=== PATIENT | male | born 1950 | race Caucasian/White ===

== ENCOUNTER → 2018-09-07 | Outpatient (CLI) | payer MEDICARE | END | disposition home or self-care (01) | LOC: RAH 13:39 | PROVIDERS: ATTEND Family Medicine | DX: M79.605 Pain in left leg (principal) | CPT/HCPCS: 93971 ==

== ENCOUNTER → 2019-08-19 | Outpatient (CLI) | payer MEDICARE | END | disposition home or self-care (01) | LOC: SHCH 14:30 | PROVIDERS: ATTEND Internal Medicine Cardiovascular Disease | DX: I87.2 Venous insufficiency (chronic) (peripheral) (principal) | CPT/HCPCS: 93970 ==

== ENCOUNTER → 2019-10-19 | Outpatient (CLI) | payer MEDICARE ==
[~2019-10-19] MED LIST: HYDROGEL DRESSING 30 GM TUBE TP ONE; SILVER NITRATE APPLICATOR 1 SWAB TP ONE
== END | disposition home or self-care (01) ==
LOC: WHH 08:50
PROVIDERS: ATTEND Surgery
DX: E11.622 Type 2 diabetes mellitus with other skin ulcer (principal); I83.028 Varicose veins of left lower extremity with ulcer other part of lower leg; L97.821 Non-pressure chronic ulcer of other part of left lower leg limited to breakdown of skin; L02.416 Cutaneous abscess of left lower limb; E11.42 Type 2 diabetes mellitus with diabetic polyneuropathy; I87.2 Venous insufficiency (chronic) (peripheral); I89.0 Lymphedema, not elsewhere classified; I11.9 Hypertensive heart disease without heart failure; E03.9 Hypothyroidism, unspecified; G47.33 Obstructive sleep apnea (adult) (pediatric); E66.9 Obesity, unspecified; J44.9 Chronic obstructive pulmonary disease, unspecified; E78.5 Hyperlipidemia, unspecified; M19.90 Unspecified osteoarthritis, unspecified site; G47.30 Sleep apnea, unspecified; Z96.653 Presence of artificial knee joint, bilateral; Z68.38 Body mass index [BMI] 38.0-38.9, adult; Z90.49 Acquired absence of other specified parts of digestive tract; Z98.49 Cataract extraction status, unspecified eye
CPT/HCPCS: 17250; A6197

== ENCOUNTER → 2019-10-26 | Outpatient (CLI) | payer MEDICARE ==
[~2019-10-26] MED LIST changes: -HYDROGEL DRESSING 30 GM TUBE TP ONE; +LIDOCAINE HCL 4% LTA SOL 4 ML VIAL ONE
== END | disposition home or self-care (01) ==
LOC: WHH 08:45
PROVIDERS: ATTEND Surgery
DX: E11.622 Type 2 diabetes mellitus with other skin ulcer (principal); I83.028 Varicose veins of left lower extremity with ulcer other part of lower leg; L97.822 Non-pressure chronic ulcer of other part of left lower leg with fat layer exposed; L02.416 Cutaneous abscess of left lower limb; E11.42 Type 2 diabetes mellitus with diabetic polyneuropathy; I87.2 Venous insufficiency (chronic) (peripheral); I89.0 Lymphedema, not elsewhere classified; I11.9 Hypertensive heart disease without heart failure; E03.9 Hypothyroidism, unspecified; G47.33 Obstructive sleep apnea (adult) (pediatric); E66.9 Obesity, unspecified; J44.9 Chronic obstructive pulmonary disease, unspecified; E78.5 Hyperlipidemia, unspecified; M19.90 Unspecified osteoarthritis, unspecified site; G47.30 Sleep apnea, unspecified; Z96.653 Presence of artificial knee joint, bilateral; Z68.38 Body mass index [BMI] 38.0-38.9, adult; Z90.49 Acquired absence of other specified parts of digestive tract; Z98.49 Cataract extraction status, unspecified eye
CPT/HCPCS: 11042; 93971; A6197; A6212

== ENCOUNTER → 2019-10-26 | Outpatient (CLI) | payer MEDICARE | END | disposition home or self-care (01) | LOC: SHCH 14:38 | PROVIDERS: ATTEND Internal Medicine Cardiovascular Disease | DX: I87.2 Venous insufficiency (chronic) (peripheral) (principal); Z09 Encounter for follow-up examination after completed treatment for conditions other than malignant neoplasm | CPT/HCPCS: 93971 ==

== ENCOUNTER → 2019-11-02 | Outpatient (CLI) | payer MEDICARE | END | disposition home or self-care (01) | LOC: SHCH 10:37 | PROVIDERS: ATTEND Internal Medicine Cardiovascular Disease | DX: Z09 Encounter for follow-up examination after completed treatment for conditions other than malignant neoplasm (principal) | CPT/HCPCS: 93971 ==

== ENCOUNTER → 2019-11-02 | Outpatient (CLI) | payer MEDICARE ==
[~2019-11-02] MED LIST changes: -SILVER NITRATE APPLICATOR 1 SWAB TP ONE
== END | disposition home or self-care (01) ==
LOC: WHH 08:40
PROVIDERS: ATTEND Family Medicine
DX: E11.622 Type 2 diabetes mellitus with other skin ulcer (principal); I83.028 Varicose veins of left lower extremity with ulcer other part of lower leg; L97.822 Non-pressure chronic ulcer of other part of left lower leg with fat layer exposed; L02.416 Cutaneous abscess of left lower limb; E11.42 Type 2 diabetes mellitus with diabetic polyneuropathy; I87.2 Venous insufficiency (chronic) (peripheral); I89.0 Lymphedema, not elsewhere classified; I11.9 Hypertensive heart disease without heart failure; E03.9 Hypothyroidism, unspecified; G47.33 Obstructive sleep apnea (adult) (pediatric); E66.9 Obesity, unspecified; J44.9 Chronic obstructive pulmonary disease, unspecified; E78.5 Hyperlipidemia, unspecified; M19.90 Unspecified osteoarthritis, unspecified site; G47.30 Sleep apnea, unspecified; Z96.653 Presence of artificial knee joint, bilateral; Z68.38 Body mass index [BMI] 38.0-38.9, adult; Z90.49 Acquired absence of other specified parts of digestive tract; Z98.49 Cataract extraction status, unspecified eye
CPT/HCPCS: 11042; 73562; 87070; 87077; 87186; 93971; A6197; A6212

== ENCOUNTER → 2019-11-09 | Outpatient (CLI) | payer MEDICARE ==
[~2019-11-09] MED LIST changes: +GENTAMICIN SULFATE 15 GM CREAM.GM. TP ONE; -LIDOCAINE HCL 4% LTA SOL 4 ML VIAL ONE
== END | disposition home or self-care (01) ==
LOC: WHH 09:45
PROVIDERS: ATTEND Family Medicine
DX: E11.622 Type 2 diabetes mellitus with other skin ulcer (principal); I83.028 Varicose veins of left lower extremity with ulcer other part of lower leg; L97.822 Non-pressure chronic ulcer of other part of left lower leg with fat layer exposed; L02.416 Cutaneous abscess of left lower limb; E11.42 Type 2 diabetes mellitus with diabetic polyneuropathy; I87.2 Venous insufficiency (chronic) (peripheral); I89.0 Lymphedema, not elsewhere classified; I11.9 Hypertensive heart disease without heart failure; E03.9 Hypothyroidism, unspecified; G47.33 Obstructive sleep apnea (adult) (pediatric); E66.9 Obesity, unspecified; J44.9 Chronic obstructive pulmonary disease, unspecified; E78.5 Hyperlipidemia, unspecified; M19.90 Unspecified osteoarthritis, unspecified site; G47.30 Sleep apnea, unspecified; Z96.653 Presence of artificial knee joint, bilateral; Z68.38 Body mass index [BMI] 38.0-38.9, adult; Z90.49 Acquired absence of other specified parts of digestive tract; Z98.49 Cataract extraction status, unspecified eye
CPT/HCPCS: 10060; A6197

== ENCOUNTER → 2019-11-10 | Outpatient (CLI) | payer MEDICARE | END | disposition home or self-care (01) | LOC: WHH 10:30 | PROVIDERS: ATTEND Family Medicine | DX: L02.416 Cutaneous abscess of left lower limb (principal); E11.42 Type 2 diabetes mellitus with diabetic polyneuropathy; I83.813 Varicose veins of bilateral lower extremities with pain; I87.2 Venous insufficiency (chronic) (peripheral); I89.0 Lymphedema, not elsewhere classified; I11.9 Hypertensive heart disease without heart failure; E03.9 Hypothyroidism, unspecified; G47.33 Obstructive sleep apnea (adult) (pediatric); E66.9 Obesity, unspecified; J44.9 Chronic obstructive pulmonary disease, unspecified; E78.5 Hyperlipidemia, unspecified; M19.90 Unspecified osteoarthritis, unspecified site; G47.30 Sleep apnea, unspecified; Z96.653 Presence of artificial knee joint, bilateral; Z68.38 Body mass index [BMI] 38.0-38.9, adult; Z90.49 Acquired absence of other specified parts of digestive tract; Z98.49 Cataract extraction status, unspecified eye | CPT/HCPCS: A6197; G0463 ==

== ENCOUNTER → 2019-11-11 | Outpatient (CLI) | payer MEDICARE | END | disposition home or self-care (01) | LOC: WHH 14:15 | PROVIDERS: ATTEND Family Medicine | DX: L02.416 Cutaneous abscess of left lower limb (principal); E11.42 Type 2 diabetes mellitus with diabetic polyneuropathy; I83.813 Varicose veins of bilateral lower extremities with pain; I87.2 Venous insufficiency (chronic) (peripheral); I89.0 Lymphedema, not elsewhere classified; I11.9 Hypertensive heart disease without heart failure; E03.9 Hypothyroidism, unspecified; G47.33 Obstructive sleep apnea (adult) (pediatric); E66.9 Obesity, unspecified; J44.9 Chronic obstructive pulmonary disease, unspecified; E78.5 Hyperlipidemia, unspecified; M19.90 Unspecified osteoarthritis, unspecified site; G47.30 Sleep apnea, unspecified; Z96.653 Presence of artificial knee joint, bilateral; Z68.38 Body mass index [BMI] 38.0-38.9, adult; Z90.49 Acquired absence of other specified parts of digestive tract; Z98.49 Cataract extraction status, unspecified eye | CPT/HCPCS: A6197; G0463 ==

== ENCOUNTER → 2019-11-12 | Outpatient (CLI) | payer MEDICARE | END | disposition home or self-care (01) | LOC: WHH 10:00 | PROVIDERS: ATTEND Family Medicine | DX: L02.416 Cutaneous abscess of left lower limb (principal); E11.42 Type 2 diabetes mellitus with diabetic polyneuropathy; I83.813 Varicose veins of bilateral lower extremities with pain; I87.2 Venous insufficiency (chronic) (peripheral); I89.0 Lymphedema, not elsewhere classified; I11.9 Hypertensive heart disease without heart failure; E03.9 Hypothyroidism, unspecified; G47.33 Obstructive sleep apnea (adult) (pediatric); E66.9 Obesity, unspecified; J44.9 Chronic obstructive pulmonary disease, unspecified; E78.5 Hyperlipidemia, unspecified; M19.90 Unspecified osteoarthritis, unspecified site; G47.30 Sleep apnea, unspecified; Z96.653 Presence of artificial knee joint, bilateral; Z68.38 Body mass index [BMI] 38.0-38.9, adult; Z90.49 Acquired absence of other specified parts of digestive tract; Z98.49 Cataract extraction status, unspecified eye | CPT/HCPCS: A6197; G0463 ==

== ENCOUNTER → 2019-11-15 | Outpatient (CLI) | payer MEDICARE | END | disposition home or self-care (01) | LOC: SHCH 09:48 | PROVIDERS: ATTEND Internal Medicine Cardiovascular Disease | DX: Z09 Encounter for follow-up examination after completed treatment for conditions other than malignant neoplasm (principal); I87.2 Venous insufficiency (chronic) (peripheral) | CPT/HCPCS: 93971 ==

== ENCOUNTER → 2019-11-15 | Outpatient (CLI) | payer MEDICARE ==
[2019-11-15 12:08] LABS: CREATININE 1.3 mg/dL (0.5-1.5); POTASSIUM 4.1 mmol/L (3.5-5.1)
[2019-11-15 12:13] LABS: ALBUMIN 3.3 g/dL (3.5-5.0); BILIRUBIN,TOTAL 0.3 mg/dL (0.2-1.0); TOTAL PROTEIN, SERUM 7.4 g/dL (6.0-8.3)
== END | disposition home or self-care (01) ==
LOC: WHH 10:45
PROVIDERS: ATTEND Family Medicine
DX: L02.416 Cutaneous abscess of left lower limb (principal); E11.42 Type 2 diabetes mellitus with diabetic polyneuropathy; I83.813 Varicose veins of bilateral lower extremities with pain; I87.2 Venous insufficiency (chronic) (peripheral); I89.0 Lymphedema, not elsewhere classified; I11.9 Hypertensive heart disease without heart failure; E03.9 Hypothyroidism, unspecified; G47.33 Obstructive sleep apnea (adult) (pediatric); E66.9 Obesity, unspecified; J44.9 Chronic obstructive pulmonary disease, unspecified; E78.5 Hyperlipidemia, unspecified; M19.90 Unspecified osteoarthritis, unspecified site; G47.30 Sleep apnea, unspecified; Z96.653 Presence of artificial knee joint, bilateral; Z68.38 Body mass index [BMI] 38.0-38.9, adult; Z90.49 Acquired absence of other specified parts of digestive tract; Z98.49 Cataract extraction status, unspecified eye
CPT/HCPCS: 36415; 80053; 93971; A6197; G0463

== ENCOUNTER → 2019-11-16 | Outpatient (CLI) | payer MEDICARE ==
[~2019-11-16] MED LIST changes: +GADODIAMIDE 10 MMOL/20 ML VIAL IV ONE; -GENTAMICIN SULFATE 15 GM CREAM.GM. TP ONE; +LIDOCAINE HCL 4% LTA SOL 4 ML VIAL ONE
== END | disposition home or self-care (01) ==
LOC: WHH 09:00
PROVIDERS: ATTEND Family Medicine
DX: I83.028 Varicose veins of left lower extremity with ulcer other part of lower leg (principal); L97.822 Non-pressure chronic ulcer of other part of left lower leg with fat layer exposed; L02.416 Cutaneous abscess of left lower limb; E11.42 Type 2 diabetes mellitus with diabetic polyneuropathy; I83.811 Varicose veins of right lower extremity with pain; I87.2 Venous insufficiency (chronic) (peripheral); I89.0 Lymphedema, not elsewhere classified; I11.9 Hypertensive heart disease without heart failure; E03.9 Hypothyroidism, unspecified; G47.33 Obstructive sleep apnea (adult) (pediatric); E66.9 Obesity, unspecified; J44.9 Chronic obstructive pulmonary disease, unspecified; E78.5 Hyperlipidemia, unspecified; M19.90 Unspecified osteoarthritis, unspecified site; G47.30 Sleep apnea, unspecified; Z96.653 Presence of artificial knee joint, bilateral; Z68.38 Body mass index [BMI] 38.0-38.9, adult; Z90.49 Acquired absence of other specified parts of digestive tract; Z98.49 Cataract extraction status, unspecified eye
CPT/HCPCS: 11042; 73723; A6197; A9579 ×2

== ENCOUNTER → 2019-11-16 | Outpatient (CLI) | payer MEDICARE ==
[~2019-11-16] MED LIST changes: -LIDOCAINE HCL 4% LTA SOL 4 ML VIAL ONE
== END | disposition home or self-care (01) ==
LOC: RAH 10:00
PROVIDERS: ATTEND Family Medicine
DX: L02.416 Cutaneous abscess of left lower limb (principal); Z96.652 Presence of left artificial knee joint
CPT/HCPCS: 73723; A9579

== ENCOUNTER → 2019-11-17 | Outpatient (CLI) | payer MEDICARE | END | disposition home or self-care (01) | LOC: WHH 11:00 | PROVIDERS: ATTEND Family Medicine | DX: L02.416 Cutaneous abscess of left lower limb (principal); E11.42 Type 2 diabetes mellitus with diabetic polyneuropathy; I83.811 Varicose veins of right lower extremity with pain; I87.2 Venous insufficiency (chronic) (peripheral); I89.0 Lymphedema, not elsewhere classified; I11.9 Hypertensive heart disease without heart failure; E03.9 Hypothyroidism, unspecified; G47.33 Obstructive sleep apnea (adult) (pediatric); E66.9 Obesity, unspecified; J44.9 Chronic obstructive pulmonary disease, unspecified; E78.5 Hyperlipidemia, unspecified; M19.90 Unspecified osteoarthritis, unspecified site; Z96.653 Presence of artificial knee joint, bilateral; Z68.38 Body mass index [BMI] 38.0-38.9, adult; Z90.49 Acquired absence of other specified parts of digestive tract; Z98.49 Cataract extraction status, unspecified eye | CPT/HCPCS: G0463 ==

== ENCOUNTER → 2019-11-18 | Outpatient (CLI) | payer MEDICARE | END | disposition home or self-care (01) | LOC: WHH 11:00 | PROVIDERS: ATTEND Family Medicine | DX: L02.416 Cutaneous abscess of left lower limb (principal); E11.42 Type 2 diabetes mellitus with diabetic polyneuropathy; I83.811 Varicose veins of right lower extremity with pain; I87.2 Venous insufficiency (chronic) (peripheral); I89.0 Lymphedema, not elsewhere classified; I11.9 Hypertensive heart disease without heart failure; E03.9 Hypothyroidism, unspecified; G47.33 Obstructive sleep apnea (adult) (pediatric); E66.9 Obesity, unspecified; J44.9 Chronic obstructive pulmonary disease, unspecified; E78.5 Hyperlipidemia, unspecified; M19.90 Unspecified osteoarthritis, unspecified site; Z96.653 Presence of artificial knee joint, bilateral; Z68.38 Body mass index [BMI] 38.0-38.9, adult; Z90.49 Acquired absence of other specified parts of digestive tract; Z98.49 Cataract extraction status, unspecified eye | CPT/HCPCS: A6197; G0463 ==

== ENCOUNTER → 2019-11-19 | Outpatient (CLI) | payer MEDICARE | END | disposition home or self-care (01) | LOC: WHH 10:30 | PROVIDERS: ATTEND Family Medicine | DX: L02.416 Cutaneous abscess of left lower limb (principal); E11.42 Type 2 diabetes mellitus with diabetic polyneuropathy; I83.813 Varicose veins of bilateral lower extremities with pain; I87.2 Venous insufficiency (chronic) (peripheral); I89.0 Lymphedema, not elsewhere classified; I11.9 Hypertensive heart disease without heart failure; E03.9 Hypothyroidism, unspecified; G47.33 Obstructive sleep apnea (adult) (pediatric); E66.9 Obesity, unspecified; J44.9 Chronic obstructive pulmonary disease, unspecified; E78.5 Hyperlipidemia, unspecified; M19.90 Unspecified osteoarthritis, unspecified site; Z96.653 Presence of artificial knee joint, bilateral; Z68.38 Body mass index [BMI] 38.0-38.9, adult; Z90.49 Acquired absence of other specified parts of digestive tract; Z98.49 Cataract extraction status, unspecified eye | CPT/HCPCS: 87070; A6197; G0463 ==

== ENCOUNTER → 2019-11-22 | Outpatient (CLI) | payer MEDICARE | END | disposition home or self-care (01) | LOC: WHH 10:40 | PROVIDERS: ATTEND Family Medicine | DX: L02.416 Cutaneous abscess of left lower limb (principal); E11.42 Type 2 diabetes mellitus with diabetic polyneuropathy; I83.813 Varicose veins of bilateral lower extremities with pain; I87.2 Venous insufficiency (chronic) (peripheral); I89.0 Lymphedema, not elsewhere classified; I11.9 Hypertensive heart disease without heart failure; E03.9 Hypothyroidism, unspecified; G47.33 Obstructive sleep apnea (adult) (pediatric); E66.9 Obesity, unspecified; J44.9 Chronic obstructive pulmonary disease, unspecified; E78.5 Hyperlipidemia, unspecified; M19.90 Unspecified osteoarthritis, unspecified site; Z96.653 Presence of artificial knee joint, bilateral; Z68.38 Body mass index [BMI] 38.0-38.9, adult; Z90.49 Acquired absence of other specified parts of digestive tract; Z98.49 Cataract extraction status, unspecified eye | CPT/HCPCS: A6197; G0463 ==

== ENCOUNTER → 2019-11-23 | Outpatient (CLI) | payer MEDICARE | END | disposition home or self-care (01) | LOC: WHH 11:00 | PROVIDERS: ATTEND Family Medicine | DX: E11.622 Type 2 diabetes mellitus with other skin ulcer (principal); I83.028 Varicose veins of left lower extremity with ulcer other part of lower leg; L97.822 Non-pressure chronic ulcer of other part of left lower leg with fat layer exposed; L02.416 Cutaneous abscess of left lower limb; E11.42 Type 2 diabetes mellitus with diabetic polyneuropathy; I87.2 Venous insufficiency (chronic) (peripheral); I89.0 Lymphedema, not elsewhere classified; I11.9 Hypertensive heart disease without heart failure; E03.9 Hypothyroidism, unspecified; G47.33 Obstructive sleep apnea (adult) (pediatric); E66.9 Obesity, unspecified; J44.9 Chronic obstructive pulmonary disease, unspecified; E78.5 Hyperlipidemia, unspecified; M19.90 Unspecified osteoarthritis, unspecified site; Z96.653 Presence of artificial knee joint, bilateral; Z68.38 Body mass index [BMI] 38.0-38.9, adult; Z90.49 Acquired absence of other specified parts of digestive tract; Z98.49 Cataract extraction status, unspecified eye | CPT/HCPCS: 11042 ==

== ENCOUNTER → 2019-11-24 | Outpatient (CLI) | payer MEDICARE | END | disposition home or self-care (01) | LOC: WHH 14:00 | PROVIDERS: ATTEND Family Medicine | DX: L02.416 Cutaneous abscess of left lower limb (principal); E11.42 Type 2 diabetes mellitus with diabetic polyneuropathy; I83.813 Varicose veins of bilateral lower extremities with pain; I87.2 Venous insufficiency (chronic) (peripheral); I89.0 Lymphedema, not elsewhere classified; I11.9 Hypertensive heart disease without heart failure; E03.9 Hypothyroidism, unspecified; G47.33 Obstructive sleep apnea (adult) (pediatric); E66.9 Obesity, unspecified; J44.9 Chronic obstructive pulmonary disease, unspecified; E78.5 Hyperlipidemia, unspecified; M19.90 Unspecified osteoarthritis, unspecified site; Z96.653 Presence of artificial knee joint, bilateral; Z68.38 Body mass index [BMI] 38.0-38.9, adult; Z90.49 Acquired absence of other specified parts of digestive tract; Z98.49 Cataract extraction status, unspecified eye | CPT/HCPCS: A6197; G0463 ==

== ENCOUNTER → 2019-11-25 | Outpatient (CLI) | payer MEDICARE | END | disposition home or self-care (01) | LOC: WHH 11:00 | PROVIDERS: ATTEND Family Medicine | DX: L02.416 Cutaneous abscess of left lower limb (principal); E11.42 Type 2 diabetes mellitus with diabetic polyneuropathy; I83.813 Varicose veins of bilateral lower extremities with pain; I87.2 Venous insufficiency (chronic) (peripheral); I89.0 Lymphedema, not elsewhere classified; I11.9 Hypertensive heart disease without heart failure; E03.9 Hypothyroidism, unspecified; G47.33 Obstructive sleep apnea (adult) (pediatric); E66.9 Obesity, unspecified; J44.9 Chronic obstructive pulmonary disease, unspecified; E78.5 Hyperlipidemia, unspecified; M19.90 Unspecified osteoarthritis, unspecified site; Z96.653 Presence of artificial knee joint, bilateral; Z68.38 Body mass index [BMI] 38.0-38.9, adult; Z90.49 Acquired absence of other specified parts of digestive tract; Z98.49 Cataract extraction status, unspecified eye | CPT/HCPCS: A6196; G0463 ==

== ENCOUNTER → 2019-11-30 | Outpatient (CLI) | payer MEDICARE ==
[~2019-11-30] MED LIST changes: -GADODIAMIDE 10 MMOL/20 ML VIAL IV ONE; +LIDOCAINE HCL 2% JELLY 5 ML ONE
== END | disposition home or self-care (01) ==
LOC: WHH 11:00
PROVIDERS: ATTEND Family Medicine
DX: E11.622 Type 2 diabetes mellitus with other skin ulcer (principal); I83.028 Varicose veins of left lower extremity with ulcer other part of lower leg; L97.822 Non-pressure chronic ulcer of other part of left lower leg with fat layer exposed; L02.416 Cutaneous abscess of left lower limb; E11.42 Type 2 diabetes mellitus with diabetic polyneuropathy; I87.2 Venous insufficiency (chronic) (peripheral); I89.0 Lymphedema, not elsewhere classified; I11.9 Hypertensive heart disease without heart failure; E03.9 Hypothyroidism, unspecified; G47.33 Obstructive sleep apnea (adult) (pediatric); E66.9 Obesity, unspecified; J44.9 Chronic obstructive pulmonary disease, unspecified; E78.5 Hyperlipidemia, unspecified; M19.90 Unspecified osteoarthritis, unspecified site; Z96.653 Presence of artificial knee joint, bilateral; Z68.38 Body mass index [BMI] 38.0-38.9, adult; Z90.49 Acquired absence of other specified parts of digestive tract; Z98.49 Cataract extraction status, unspecified eye
CPT/HCPCS: 11042; A6197

== ENCOUNTER → 2019-12-07 | Outpatient (CLI) | payer MEDICARE ==
[~2019-12-07] MED LIST changes: +GENTAMICIN SULFATE 15 GM CREAM.GM. TP ONE; -LIDOCAINE HCL 2% JELLY 5 ML ONE
== END | disposition home or self-care (01) ==
LOC: WHH 11:20
PROVIDERS: ATTEND Family Medicine
DX: E11.622 Type 2 diabetes mellitus with other skin ulcer (principal); I83.028 Varicose veins of left lower extremity with ulcer other part of lower leg; L97.822 Non-pressure chronic ulcer of other part of left lower leg with fat layer exposed; L02.416 Cutaneous abscess of left lower limb; E11.42 Type 2 diabetes mellitus with diabetic polyneuropathy; I87.2 Venous insufficiency (chronic) (peripheral); I89.0 Lymphedema, not elsewhere classified; I11.9 Hypertensive heart disease without heart failure; E03.9 Hypothyroidism, unspecified; G47.33 Obstructive sleep apnea (adult) (pediatric); E66.9 Obesity, unspecified; J44.9 Chronic obstructive pulmonary disease, unspecified; E78.5 Hyperlipidemia, unspecified; M19.90 Unspecified osteoarthritis, unspecified site; Z96.653 Presence of artificial knee joint, bilateral; Z68.38 Body mass index [BMI] 38.0-38.9, adult; Z90.49 Acquired absence of other specified parts of digestive tract; Z98.49 Cataract extraction status, unspecified eye
CPT/HCPCS: 11042; 87070; A6197

== ENCOUNTER → 2019-12-14 | Outpatient (CLI) | payer MEDICARE ==
[~2019-12-14] MED LIST changes: -GENTAMICIN SULFATE 15 GM CREAM.GM. TP ONE; +LIDOCAINE HCL 2% JELLY 5 ML ONE
== END | disposition home or self-care (01) ==
LOC: WHH 11:00
PROVIDERS: ATTEND Family Medicine
DX: E11.622 Type 2 diabetes mellitus with other skin ulcer (principal); I83.028 Varicose veins of left lower extremity with ulcer other part of lower leg; L97.822 Non-pressure chronic ulcer of other part of left lower leg with fat layer exposed; L02.416 Cutaneous abscess of left lower limb; E11.42 Type 2 diabetes mellitus with diabetic polyneuropathy; I87.2 Venous insufficiency (chronic) (peripheral); I89.0 Lymphedema, not elsewhere classified; I11.9 Hypertensive heart disease without heart failure; E03.9 Hypothyroidism, unspecified; G47.33 Obstructive sleep apnea (adult) (pediatric); E66.9 Obesity, unspecified; J44.9 Chronic obstructive pulmonary disease, unspecified; E78.5 Hyperlipidemia, unspecified; M19.90 Unspecified osteoarthritis, unspecified site; Z96.653 Presence of artificial knee joint, bilateral; Z68.38 Body mass index [BMI] 38.0-38.9, adult; Z90.49 Acquired absence of other specified parts of digestive tract; Z98.49 Cataract extraction status, unspecified eye
CPT/HCPCS: 11042; 87076; 87077; 87186

== ENCOUNTER → 2019-12-15 | Outpatient (CLI) | payer MEDICARE | END | disposition home or self-care (01) | LOC: WHH 11:00 | PROVIDERS: ATTEND Family Medicine | DX: L02.416 Cutaneous abscess of left lower limb (principal); I83.813 Varicose veins of bilateral lower extremities with pain; E11.42 Type 2 diabetes mellitus with diabetic polyneuropathy; I87.2 Venous insufficiency (chronic) (peripheral); I89.0 Lymphedema, not elsewhere classified; I11.9 Hypertensive heart disease without heart failure; E03.9 Hypothyroidism, unspecified; G47.33 Obstructive sleep apnea (adult) (pediatric); E66.9 Obesity, unspecified; J44.9 Chronic obstructive pulmonary disease, unspecified; E78.5 Hyperlipidemia, unspecified; M19.90 Unspecified osteoarthritis, unspecified site; Z96.653 Presence of artificial knee joint, bilateral; Z68.38 Body mass index [BMI] 38.0-38.9, adult; Z90.49 Acquired absence of other specified parts of digestive tract; Z98.49 Cataract extraction status, unspecified eye | CPT/HCPCS: G0463 ==

== ENCOUNTER → 2019-12-16 | Outpatient (CLI) | payer MEDICARE | END | disposition home or self-care (01) | LOC: WHH 11:00 | PROVIDERS: ATTEND Family Medicine | DX: L02.416 Cutaneous abscess of left lower limb (principal); I83.813 Varicose veins of bilateral lower extremities with pain; E11.42 Type 2 diabetes mellitus with diabetic polyneuropathy; I87.2 Venous insufficiency (chronic) (peripheral); I89.0 Lymphedema, not elsewhere classified; I11.9 Hypertensive heart disease without heart failure; E03.9 Hypothyroidism, unspecified; G47.33 Obstructive sleep apnea (adult) (pediatric); E66.9 Obesity, unspecified; J44.9 Chronic obstructive pulmonary disease, unspecified; E78.5 Hyperlipidemia, unspecified; M19.90 Unspecified osteoarthritis, unspecified site; Z96.653 Presence of artificial knee joint, bilateral; Z68.38 Body mass index [BMI] 38.0-38.9, adult; Z90.49 Acquired absence of other specified parts of digestive tract; Z98.49 Cataract extraction status, unspecified eye | CPT/HCPCS: G0463 ==

== ENCOUNTER → 2019-12-17 | Outpatient (CLI) | payer MEDICARE | END | disposition home or self-care (01) | LOC: WHH 08:45 | PROVIDERS: ATTEND Family Medicine | DX: L02.416 Cutaneous abscess of left lower limb (principal); I83.813 Varicose veins of bilateral lower extremities with pain; E11.42 Type 2 diabetes mellitus with diabetic polyneuropathy; I87.2 Venous insufficiency (chronic) (peripheral); I89.0 Lymphedema, not elsewhere classified; I11.9 Hypertensive heart disease without heart failure; E03.9 Hypothyroidism, unspecified; G47.33 Obstructive sleep apnea (adult) (pediatric); E66.9 Obesity, unspecified; J44.9 Chronic obstructive pulmonary disease, unspecified; E78.5 Hyperlipidemia, unspecified; M19.90 Unspecified osteoarthritis, unspecified site; Z96.653 Presence of artificial knee joint, bilateral; Z68.38 Body mass index [BMI] 38.0-38.9, adult; Z90.49 Acquired absence of other specified parts of digestive tract; Z98.49 Cataract extraction status, unspecified eye | CPT/HCPCS: G0463 ==

== ENCOUNTER → 2019-12-20 | Outpatient (CLI) | payer MEDICARE | END | disposition home or self-care (01) | LOC: WHH 11:00 | PROVIDERS: ATTEND Family Medicine | DX: I83.028 Varicose veins of left lower extremity with ulcer other part of lower leg (principal); L97.822 Non-pressure chronic ulcer of other part of left lower leg with fat layer exposed; L02.416 Cutaneous abscess of left lower limb; I83.812 Varicose veins of left lower extremity with pain; E11.42 Type 2 diabetes mellitus with diabetic polyneuropathy; I87.2 Venous insufficiency (chronic) (peripheral); I89.0 Lymphedema, not elsewhere classified; I11.9 Hypertensive heart disease without heart failure; E03.9 Hypothyroidism, unspecified; G47.33 Obstructive sleep apnea (adult) (pediatric); E66.9 Obesity, unspecified; J44.9 Chronic obstructive pulmonary disease, unspecified; E78.5 Hyperlipidemia, unspecified; M19.90 Unspecified osteoarthritis, unspecified site; Z96.653 Presence of artificial knee joint, bilateral; Z68.38 Body mass index [BMI] 38.0-38.9, adult; Z90.49 Acquired absence of other specified parts of digestive tract; Z98.49 Cataract extraction status, unspecified eye | CPT/HCPCS: G0463 ==

== ENCOUNTER → 2019-12-21 | Outpatient (CLI) | payer MEDICARE | END | disposition home or self-care (01) | LOC: WHH 11:00 | PROVIDERS: ATTEND Family Medicine | DX: L02.416 Cutaneous abscess of left lower limb (principal); I83.813 Varicose veins of bilateral lower extremities with pain; E11.42 Type 2 diabetes mellitus with diabetic polyneuropathy; I87.2 Venous insufficiency (chronic) (peripheral); I89.0 Lymphedema, not elsewhere classified; I11.9 Hypertensive heart disease without heart failure; E03.9 Hypothyroidism, unspecified; G47.33 Obstructive sleep apnea (adult) (pediatric); E66.9 Obesity, unspecified; J44.9 Chronic obstructive pulmonary disease, unspecified; E78.5 Hyperlipidemia, unspecified; M19.90 Unspecified osteoarthritis, unspecified site; Z96.653 Presence of artificial knee joint, bilateral; Z68.38 Body mass index [BMI] 38.0-38.9, adult; Z90.49 Acquired absence of other specified parts of digestive tract; Z98.49 Cataract extraction status, unspecified eye | CPT/HCPCS: G0463 ==

== ENCOUNTER → 2019-12-22 | Outpatient (CLI) | payer MEDICARE | END | disposition home or self-care (01) | LOC: WHH 10:50 | PROVIDERS: ATTEND Family Medicine | DX: L02.416 Cutaneous abscess of left lower limb (principal); I83.813 Varicose veins of bilateral lower extremities with pain; E11.42 Type 2 diabetes mellitus with diabetic polyneuropathy; I87.2 Venous insufficiency (chronic) (peripheral); I89.0 Lymphedema, not elsewhere classified; I11.9 Hypertensive heart disease without heart failure; E03.9 Hypothyroidism, unspecified; G47.33 Obstructive sleep apnea (adult) (pediatric); E66.9 Obesity, unspecified; J44.9 Chronic obstructive pulmonary disease, unspecified; E78.5 Hyperlipidemia, unspecified; M19.90 Unspecified osteoarthritis, unspecified site; Z96.653 Presence of artificial knee joint, bilateral; Z68.38 Body mass index [BMI] 38.0-38.9, adult; Z90.49 Acquired absence of other specified parts of digestive tract; Z98.49 Cataract extraction status, unspecified eye | CPT/HCPCS: G0463 ==

== ENCOUNTER → 2019-12-23 | Outpatient (CLI) | payer MEDICARE | END | disposition home or self-care (01) | LOC: WHH 11:00 | PROVIDERS: ATTEND Family Medicine | DX: L02.416 Cutaneous abscess of left lower limb (principal); I83.813 Varicose veins of bilateral lower extremities with pain; E11.42 Type 2 diabetes mellitus with diabetic polyneuropathy; I87.2 Venous insufficiency (chronic) (peripheral); I89.0 Lymphedema, not elsewhere classified; I11.9 Hypertensive heart disease without heart failure; E03.9 Hypothyroidism, unspecified; G47.33 Obstructive sleep apnea (adult) (pediatric); E66.9 Obesity, unspecified; J44.9 Chronic obstructive pulmonary disease, unspecified; E78.5 Hyperlipidemia, unspecified; M19.90 Unspecified osteoarthritis, unspecified site; Z96.653 Presence of artificial knee joint, bilateral; Z68.38 Body mass index [BMI] 38.0-38.9, adult; Z90.49 Acquired absence of other specified parts of digestive tract; Z98.49 Cataract extraction status, unspecified eye | CPT/HCPCS: G0463 ==

== ENCOUNTER → 2019-12-24 | Outpatient (CLI) | payer MEDICARE | END | disposition home or self-care (01) | LOC: WHH 09:00 | PROVIDERS: ATTEND Family Medicine | DX: L02.416 Cutaneous abscess of left lower limb (principal); I83.813 Varicose veins of bilateral lower extremities with pain; E11.42 Type 2 diabetes mellitus with diabetic polyneuropathy; I87.2 Venous insufficiency (chronic) (peripheral); I89.0 Lymphedema, not elsewhere classified; I11.9 Hypertensive heart disease without heart failure; E03.9 Hypothyroidism, unspecified; G47.33 Obstructive sleep apnea (adult) (pediatric); E66.9 Obesity, unspecified; J44.9 Chronic obstructive pulmonary disease, unspecified; E78.5 Hyperlipidemia, unspecified; M19.90 Unspecified osteoarthritis, unspecified site; Z96.653 Presence of artificial knee joint, bilateral; Z68.38 Body mass index [BMI] 38.0-38.9, adult; Z90.49 Acquired absence of other specified parts of digestive tract; Z98.49 Cataract extraction status, unspecified eye | CPT/HCPCS: G0463 ==

== ENCOUNTER → 2019-12-27 | Outpatient (CLI) | payer MEDICARE | END | disposition home or self-care (01) | LOC: WHH 09:00 | PROVIDERS: ATTEND Family Medicine | DX: L02.416 Cutaneous abscess of left lower limb (principal); I83.813 Varicose veins of bilateral lower extremities with pain; E11.42 Type 2 diabetes mellitus with diabetic polyneuropathy; I87.2 Venous insufficiency (chronic) (peripheral); I89.0 Lymphedema, not elsewhere classified; I11.9 Hypertensive heart disease without heart failure; E03.9 Hypothyroidism, unspecified; G47.33 Obstructive sleep apnea (adult) (pediatric); E66.9 Obesity, unspecified; J44.9 Chronic obstructive pulmonary disease, unspecified; E78.5 Hyperlipidemia, unspecified; M19.90 Unspecified osteoarthritis, unspecified site; Z96.653 Presence of artificial knee joint, bilateral; Z68.38 Body mass index [BMI] 38.0-38.9, adult; Z90.49 Acquired absence of other specified parts of digestive tract; Z98.49 Cataract extraction status, unspecified eye | CPT/HCPCS: A4450; G0463 ==

== ENCOUNTER → 2019-12-29 | Outpatient (CLI) | payer MEDICARE | END | disposition home or self-care (01) | LOC: WHH 10:30 | PROVIDERS: ATTEND Family Medicine | DX: L02.416 Cutaneous abscess of left lower limb (principal); I83.813 Varicose veins of bilateral lower extremities with pain; E11.42 Type 2 diabetes mellitus with diabetic polyneuropathy; I87.2 Venous insufficiency (chronic) (peripheral); I89.0 Lymphedema, not elsewhere classified; I11.9 Hypertensive heart disease without heart failure; E03.9 Hypothyroidism, unspecified; G47.33 Obstructive sleep apnea (adult) (pediatric); E66.9 Obesity, unspecified; J44.9 Chronic obstructive pulmonary disease, unspecified; E78.5 Hyperlipidemia, unspecified; M19.90 Unspecified osteoarthritis, unspecified site; Z96.653 Presence of artificial knee joint, bilateral; Z68.38 Body mass index [BMI] 38.0-38.9, adult; Z90.49 Acquired absence of other specified parts of digestive tract; Z98.49 Cataract extraction status, unspecified eye | CPT/HCPCS: G0463 ==

== ENCOUNTER → 2019-12-30 | Outpatient (CLI) | payer MEDICARE | END | disposition home or self-care (01) | LOC: WHH 11:00 | PROVIDERS: ATTEND Family Medicine | DX: I83.028 Varicose veins of left lower extremity with ulcer other part of lower leg (principal); L97.822 Non-pressure chronic ulcer of other part of left lower leg with fat layer exposed; L02.416 Cutaneous abscess of left lower limb; E11.42 Type 2 diabetes mellitus with diabetic polyneuropathy; I87.2 Venous insufficiency (chronic) (peripheral); I89.0 Lymphedema, not elsewhere classified; I11.9 Hypertensive heart disease without heart failure; E03.9 Hypothyroidism, unspecified; G47.33 Obstructive sleep apnea (adult) (pediatric); E66.9 Obesity, unspecified; J44.9 Chronic obstructive pulmonary disease, unspecified; E78.5 Hyperlipidemia, unspecified; M19.90 Unspecified osteoarthritis, unspecified site; Z96.653 Presence of artificial knee joint, bilateral; Z68.38 Body mass index [BMI] 38.0-38.9, adult; Z90.49 Acquired absence of other specified parts of digestive tract; Z98.49 Cataract extraction status, unspecified eye | CPT/HCPCS: G0463 ==

== ENCOUNTER → 2019-12-31 | Outpatient (CLI) | payer MEDICARE | END | disposition home or self-care (01) | LOC: WHH 11:00 | PROVIDERS: ATTEND Family Medicine | DX: L02.416 Cutaneous abscess of left lower limb (principal); I83.813 Varicose veins of bilateral lower extremities with pain; E11.42 Type 2 diabetes mellitus with diabetic polyneuropathy; I87.2 Venous insufficiency (chronic) (peripheral); I89.0 Lymphedema, not elsewhere classified; I11.9 Hypertensive heart disease without heart failure; E03.9 Hypothyroidism, unspecified; G47.33 Obstructive sleep apnea (adult) (pediatric); E66.9 Obesity, unspecified; J44.9 Chronic obstructive pulmonary disease, unspecified; E78.5 Hyperlipidemia, unspecified; M19.90 Unspecified osteoarthritis, unspecified site; Z96.653 Presence of artificial knee joint, bilateral; Z68.38 Body mass index [BMI] 38.0-38.9, adult; Z90.49 Acquired absence of other specified parts of digestive tract; Z98.49 Cataract extraction status, unspecified eye | CPT/HCPCS: G0463 ==

== ENCOUNTER → 2020-01-03 | Outpatient (CLI) | payer MEDICARE | END | disposition home or self-care (01) | LOC: WHH 12:00 | PROVIDERS: ATTEND Family Medicine | DX: L02.416 Cutaneous abscess of left lower limb (principal); I83.813 Varicose veins of bilateral lower extremities with pain; E11.42 Type 2 diabetes mellitus with diabetic polyneuropathy; I87.2 Venous insufficiency (chronic) (peripheral); I89.0 Lymphedema, not elsewhere classified; I11.9 Hypertensive heart disease without heart failure; E03.9 Hypothyroidism, unspecified; G47.33 Obstructive sleep apnea (adult) (pediatric); E66.9 Obesity, unspecified; J44.9 Chronic obstructive pulmonary disease, unspecified; E78.5 Hyperlipidemia, unspecified; M19.90 Unspecified osteoarthritis, unspecified site; Z96.653 Presence of artificial knee joint, bilateral; Z68.38 Body mass index [BMI] 38.0-38.9, adult; Z90.49 Acquired absence of other specified parts of digestive tract; Z98.49 Cataract extraction status, unspecified eye | CPT/HCPCS: G0463 ==

== ENCOUNTER → 2020-01-04 | Outpatient (CLI) | payer MEDICARE | END | disposition home or self-care (01) | LOC: WHH 11:00 | PROVIDERS: ATTEND Family Medicine | DX: L02.416 Cutaneous abscess of left lower limb (principal); I83.813 Varicose veins of bilateral lower extremities with pain; E11.42 Type 2 diabetes mellitus with diabetic polyneuropathy; I87.2 Venous insufficiency (chronic) (peripheral); I89.0 Lymphedema, not elsewhere classified; I11.9 Hypertensive heart disease without heart failure; E03.9 Hypothyroidism, unspecified; G47.33 Obstructive sleep apnea (adult) (pediatric); E66.9 Obesity, unspecified; J44.9 Chronic obstructive pulmonary disease, unspecified; E78.5 Hyperlipidemia, unspecified; M19.90 Unspecified osteoarthritis, unspecified site; Z96.653 Presence of artificial knee joint, bilateral; Z68.38 Body mass index [BMI] 38.0-38.9, adult; Z90.49 Acquired absence of other specified parts of digestive tract; Z98.49 Cataract extraction status, unspecified eye | CPT/HCPCS: G0463 ==

== ENCOUNTER → 2020-01-05 | Outpatient (CLI) | payer MEDICARE | END | disposition home or self-care (01) | LOC: WHH 11:00 | PROVIDERS: ATTEND Family Medicine | DX: L02.416 Cutaneous abscess of left lower limb (principal); I83.813 Varicose veins of bilateral lower extremities with pain; E11.42 Type 2 diabetes mellitus with diabetic polyneuropathy; I87.2 Venous insufficiency (chronic) (peripheral); I89.0 Lymphedema, not elsewhere classified; I11.9 Hypertensive heart disease without heart failure; E03.9 Hypothyroidism, unspecified; G47.33 Obstructive sleep apnea (adult) (pediatric); E66.9 Obesity, unspecified; J44.9 Chronic obstructive pulmonary disease, unspecified; E78.5 Hyperlipidemia, unspecified; M19.90 Unspecified osteoarthritis, unspecified site; Z96.653 Presence of artificial knee joint, bilateral; Z68.38 Body mass index [BMI] 38.0-38.9, adult; Z90.49 Acquired absence of other specified parts of digestive tract; Z98.49 Cataract extraction status, unspecified eye | CPT/HCPCS: 87070; 87077; 87186; G0463 ==

== ENCOUNTER → 2020-01-06 | Outpatient (CLI) | payer MEDICARE | END | disposition home or self-care (01) | LOC: WHH 10:45 | PROVIDERS: ATTEND Family Medicine | DX: I83.028 Varicose veins of left lower extremity with ulcer other part of lower leg (principal); L97.822 Non-pressure chronic ulcer of other part of left lower leg with fat layer exposed; L02.416 Cutaneous abscess of left lower limb; E11.42 Type 2 diabetes mellitus with diabetic polyneuropathy; I87.2 Venous insufficiency (chronic) (peripheral); I89.0 Lymphedema, not elsewhere classified; I11.9 Hypertensive heart disease without heart failure; E03.9 Hypothyroidism, unspecified; G47.33 Obstructive sleep apnea (adult) (pediatric); E66.9 Obesity, unspecified; J44.9 Chronic obstructive pulmonary disease, unspecified; E78.5 Hyperlipidemia, unspecified; M19.90 Unspecified osteoarthritis, unspecified site; Z96.653 Presence of artificial knee joint, bilateral; Z68.38 Body mass index [BMI] 38.0-38.9, adult; Z90.49 Acquired absence of other specified parts of digestive tract; Z98.49 Cataract extraction status, unspecified eye | CPT/HCPCS: 11042 ==

== ENCOUNTER → 2020-01-07 | Outpatient (CLI) | payer MEDICARE ==
[~2020-01-07] MED LIST changes: +ALFU10TA9 PO; +ASPI-888 PO; +CELE-84 PO; +ENABLEX PO; +LEVO200 PO; -LIDOCAINE HCL 2% JELLY 5 ML ONE; +LIOT5TAB11 PO; +LOVA20TA3 PO; +MELA5TAB14 PO; +METF-910 PO; +MIRA50TA PO; +MULT-1258 PO; +NIFE90TA45 PO; +OLME40TA18 PO; +SYMB8060 IH; +[UNRECOGNIZED DRUG - CODE] PO
== END | disposition home or self-care (01) ==
LOC: WHH 08:00
PROVIDERS: ATTEND Family Medicine
DX: L02.416 Cutaneous abscess of left lower limb (principal); I83.813 Varicose veins of bilateral lower extremities with pain; E11.42 Type 2 diabetes mellitus with diabetic polyneuropathy; I87.2 Venous insufficiency (chronic) (peripheral); I89.0 Lymphedema, not elsewhere classified; I11.9 Hypertensive heart disease without heart failure; E03.9 Hypothyroidism, unspecified; G47.33 Obstructive sleep apnea (adult) (pediatric); E66.9 Obesity, unspecified; J44.9 Chronic obstructive pulmonary disease, unspecified; E78.5 Hyperlipidemia, unspecified; M19.90 Unspecified osteoarthritis, unspecified site; Z96.653 Presence of artificial knee joint, bilateral; Z68.38 Body mass index [BMI] 38.0-38.9, adult; Z90.49 Acquired absence of other specified parts of digestive tract; Z98.49 Cataract extraction status, unspecified eye
CPT/HCPCS: G0463

== ENCOUNTER → 2020-01-10 | Outpatient (CLI) | payer MEDICARE | END | disposition home or self-care (01) | LOC: WHH 11:00 | PROVIDERS: ATTEND Family Medicine | DX: L02.416 Cutaneous abscess of left lower limb (principal); I83.813 Varicose veins of bilateral lower extremities with pain; E11.42 Type 2 diabetes mellitus with diabetic polyneuropathy; I87.2 Venous insufficiency (chronic) (peripheral); I89.0 Lymphedema, not elsewhere classified; I11.9 Hypertensive heart disease without heart failure; E03.9 Hypothyroidism, unspecified; G47.33 Obstructive sleep apnea (adult) (pediatric); E66.9 Obesity, unspecified; J44.9 Chronic obstructive pulmonary disease, unspecified; E78.5 Hyperlipidemia, unspecified; M19.90 Unspecified osteoarthritis, unspecified site; Z96.653 Presence of artificial knee joint, bilateral; Z68.38 Body mass index [BMI] 38.0-38.9, adult; Z90.49 Acquired absence of other specified parts of digestive tract; Z98.49 Cataract extraction status, unspecified eye | CPT/HCPCS: G0463 ==

== ENCOUNTER → 2020-01-11 | Outpatient (CLI) | payer MEDICARE | END | disposition home or self-care (01) | LOC: WHH 11:00 | PROVIDERS: ATTEND Family Medicine | DX: L02.416 Cutaneous abscess of left lower limb (principal); I83.813 Varicose veins of bilateral lower extremities with pain; E11.42 Type 2 diabetes mellitus with diabetic polyneuropathy; I87.2 Venous insufficiency (chronic) (peripheral); I89.0 Lymphedema, not elsewhere classified; I11.9 Hypertensive heart disease without heart failure; E03.9 Hypothyroidism, unspecified; G47.33 Obstructive sleep apnea (adult) (pediatric); E66.9 Obesity, unspecified; J44.9 Chronic obstructive pulmonary disease, unspecified; E78.5 Hyperlipidemia, unspecified; M19.90 Unspecified osteoarthritis, unspecified site; Z96.653 Presence of artificial knee joint, bilateral; Z68.38 Body mass index [BMI] 38.0-38.9, adult; Z90.49 Acquired absence of other specified parts of digestive tract; Z98.49 Cataract extraction status, unspecified eye | CPT/HCPCS: G0463 ==

== ENCOUNTER → 2020-01-12 | Outpatient (CLI) | payer MEDICARE | END | disposition home or self-care (01) | LOC: WHH 11:00 | PROVIDERS: ATTEND Family Medicine | DX: L02.416 Cutaneous abscess of left lower limb (principal); I83.813 Varicose veins of bilateral lower extremities with pain; E11.42 Type 2 diabetes mellitus with diabetic polyneuropathy; I87.2 Venous insufficiency (chronic) (peripheral); I89.0 Lymphedema, not elsewhere classified; I11.9 Hypertensive heart disease without heart failure; E03.9 Hypothyroidism, unspecified; G47.33 Obstructive sleep apnea (adult) (pediatric); E66.9 Obesity, unspecified; J44.9 Chronic obstructive pulmonary disease, unspecified; E78.5 Hyperlipidemia, unspecified; M19.90 Unspecified osteoarthritis, unspecified site; Z96.653 Presence of artificial knee joint, bilateral; Z68.38 Body mass index [BMI] 38.0-38.9, adult; Z90.49 Acquired absence of other specified parts of digestive tract; Z98.49 Cataract extraction status, unspecified eye | CPT/HCPCS: G0463 ==

== ENCOUNTER 2020-01-13 16:27 | Inpatient (IN) | payer MEDICARE ==
[~2020-01-13] VITALS: Ht 180.3 cm; Wt 117.8 kg
[2020-01-13 17:03] LABS: BASOPHILS % (AUTO) 0.5 % (0.0-5.0); EOSINOPHILS % (AUTO) 2.1 % (0.0-8.0); LYMPHOCYTES % (AUTO) 19.8 % (21.0-51.0); MEAN CORPUSCULAR HEMOGLOBIN 30.3 pg (27.0-33.0); MEAN CORPUSCULAR HGB CONC 31.5 g/dL (32.0-36.0); MEAN CORPUSCULAR VOLUME 96.3 fL (79-99); MONOCYTES % (AUTO) 6.1 % (3.0-13.0); NEUTROPHILS % (AUTO) 71.2 % (40.0-77.0); PLATELET COUNT (AUTO) 273 K/uL (130-400); RED BLOOD CELL COUNT(AUTO) 3.53 MIL/uL (4.50-6.20); RED CELL DISTRIBUTION WIDTH 13.4 % (11.0-15.5); WHITE BLOOD COUNT (AUTO) 9.1 K/uL (4.8-10.8)
[2020-01-13 17:05] LABS: APPEARANCE,URINE Clear (CLEAR); BILIRUBIN,URINE Negative (NEGATIVE); COLOR,URINE Yellow (YELLOW); GLUCOSE, URINE (UA) Negative (NEGATIVE); KETONES,URINE Negative (NEGATIVE); LEUKOCYTE ESTERASE ,URINE Negative (NEGATIVE); NITRATE,URINE Negative (NEGATIVE); OCCULT BLOOD,URINE Negative (NEGATIVE); PH,URINE 5.5 (5.0-8.0); PROTEIN,URINE Trace mg/dL (NEGATIVE); UROBILINOGEN,URINE 0.2 mg/dL (0.2-1.0)
[2020-01-13] MEDS ORDERED: ZOSYN 3.375GM+NS 50ML 50 ML IV ONE (17:07)
[2020-01-13] MEDS ORDERED: VANCOMYCIN 1GM+NS 250ML 250 ML IV ONE ×3 (17:08→21:37)
[2020-01-13 17:12] LABS: BACTERIA,URINE Rare /HPF (None Seen); RBC,URINE 0-1 /HPF (0-1); SQUAMOUS EPITHELIAL CELL,UR Rare /HPF (0-2); WBC,URINE 0-1 /HPF (0-1)
[2020-01-13 17:15] LABS: CARBON DIOXIDE 21 mmol/L (21-32); CHLORIDE 107 mmol/L (101-111); CREATININE 1.2 mg/dL (0.5-1.5); GLOMERULAR FILTR. RATE CALC 63 mL/min (>60); GLUCOSE,RANDOM 110 mg/dL (70-105); POTASSIUM 4.1 mmol/L (3.5-5.1); SODIUM SERUM 139 mmol/L (136-145); UREA NITROGEN, BLOOD 23 mg/dL (7-18)
[2020-01-13 17:18] LABS: INR 1.05 (0.85-1.15); PARTIAL THROMBOPLASTIN TIME 28.3 SEC (26.3-35.5); PROTHROMBIN TIME 11.3 SEC (9.6-11.6)
[2020-01-13 17:32] LABS: ALANINE AMINOTRANSFERASE 19 U/L (12-78); ALBUMIN 3.5 g/dL (3.5-5.0); ASPARTATE AMINOTRANSFERASE 18 U/L (10-37); BILIRUBIN,TOTAL 0.4 mg/dL (0.2-1.0); CREATINE KINASE, TOTAL 272 U/L (21-232); MYOGLOBIN 53 ng/mL (10-92); TOTAL PROTEIN, SERUM 8.1 g/dL (6.0-8.3); TROPONIN I < 0.04 ng/mL (0.00-0.06)
[2020-01-13] MEDS ORDERED: ACETAMINOPHEN 325 MG TAB PO PRN (20:15)
[2020-01-13] MEDS ORDERED: VANCOMYCIN PROTOCOL PER PHARMACY IV SCH (20:15)
[2020-01-14 01:37] VITALS: BP 169/60
[2020-01-14] MEDS: ZOSYN 3.375GM+NS 50ML 50 ML IV SCH ×3 (02:28→17:30)
[2020-01-14 03:45] VITALS: BP 137/78
[2020-01-14 04:11] LABS: HEMATOCRIT 32.3 % (42-54); MEAN CORPUSCULAR HEMOGLOBIN 30.4 pg (27.0-33.0); MEAN CORPUSCULAR HGB CONC 31.3 g/dL (32.0-36.0); MEAN CORPUSCULAR VOLUME 97.3 fL (79-99); RED BLOOD CELL COUNT(AUTO) 3.32 MIL/uL (4.50-6.20); RED CELL DISTRIBUTION WIDTH 13.2 % (11.0-15.5); WHITE BLOOD COUNT (AUTO) 7.7 K/uL (4.8-10.8)
[2020-01-14 04:31] LABS: BILIRUBIN,TOTAL 0.4 mg/dL (0.2-1.0); CREATININE 1.1 mg/dL (0.5-1.5); POTASSIUM 3.8 mmol/L (3.5-5.1); TOTAL PROTEIN, SERUM 7.3 g/dL (6.0-8.3)
[2020-01-14] MEDS ORDERED: MELATONIN 5 MG PO PRN (06:00)
[2020-01-14] MEDS ORDERED: LIOT5TAB11 PO (06:08)
[2020-01-14] MEDS ORDERED: MELA5TAB14 PO (06:08)
[2020-01-14] MEDS ORDERED: OLME40TA18 PO (06:08)
[2020-01-14] MEDS ORDERED: METF-910 PO (06:08)
[2020-01-14] MEDS ORDERED: LEVO200 PO (06:08)
[2020-01-14] MEDS ORDERED: SYMB8060 IH (06:08)
[2020-01-14] MEDS ORDERED: ALFU10TA9 PO (06:08)
[2020-01-14] MEDS ORDERED: ENABLEX PO (06:08)
[2020-01-14] MEDS ORDERED: NIFE90TA45 PO (06:08)
[2020-01-14] MEDS ORDERED: CELE-84 PO (06:08)
[2020-01-14] MEDS ORDERED: MULT-1258 PO (06:08)
[2020-01-14] MEDS ORDERED: ASPI-888 PO (06:08)
[2020-01-14] MEDS ORDERED: MIRA50TA PO (06:08)
[2020-01-14] MEDS ORDERED: [UNRECOGNIZED DRUG - CODE] PO (06:08)
[2020-01-14] MEDS ORDERED: LOVA20TA3 PO (06:08)
[2020-01-14] MEDS: VANCOMYCIN 1GM+NS 250ML 250 ML IV SCH ×2 (06:12→17:30)
[2020-01-14] MEDS: LIOTHYRONINE SODIUM PO SCH ×2 (07:30→20:55)
[2020-01-14] MEDS: CELECOXIB 200 MG CAP PO SCH (08:00)
[2020-01-14] MEDS: BALSALAZIDE DISODIUM 2250 MG PO SCH ×2 (09:00→20:52)
[2020-01-14] MEDS: ***HM*** (Alfuzosin HCl 10 MG) PO SCH (09:00)
[2020-01-14] MEDS: ENABLEX PO SCH (09:00)
[2020-01-14] MEDS: MULTIVITAMIN WITH MINERALS TABLET PO SCH (09:00)
[2020-01-14] MEDS: MIRABEGRON 50 MG PO SCH (09:00)
[2020-01-14] MEDS: METFORMIN HCL 500 MG TAB.SR.24H PO SCH (09:49)
[2020-01-14] MEDS: LOSARTAN 100 MG TABLET PO SCH (09:49)
[2020-01-14] MEDS: ASPIRIN 81 MG EC TAB PO SCH (09:50)
[2020-01-14] MEDS: PANTOPRAZOLE SODIUM 40 MG TABLET.DR PO SCH (09:51)
[2020-01-14 09:57] VITALS: BP 122/53
[2020-01-14] MEDS: FLUTICASONE/VILANTEROL 1 EACH AER.POW.BA IH SCH ×2 (10:17→20:55)
[2020-01-14] MEDS: LEVOTHYROXINE 100 MCG TABLET PO SCH (10:31)
[2020-01-14] MEDS ORDERED: CLONIDINE HCL 0.1 MG TABLET PO PRN (11:30)
[2020-01-14 12:10] VITALS: BP 168/79
--- NOTE | 2020-01-14 12:23 | NUR ---
DCP CM met with pt discussed dc plans. Pt is independent prior to admission, lives at home with spouse. Pt has a cpap, verbal[facility]. Denies any other equipments/services. Feels safe to go back home, still drives, spouse able to assist with transportation and needs as necessary. DC plan to home once stable. CM to continue to follow up. Addendum: 01/14/20 at 1225 by SANDI ARAYA LVN CM Amended: Links added.
[2020-01-14 16:56] VITALS: BP 154/76
[2020-01-14] MEDS: SIMVASTATIN 20 MG TABLET PO SCH (17:31)
[2020-01-14 20:00] VITALS: BP 144/69
[2020-01-14] MEDS ORDERED: GENTAMICIN SULFATE 15 GM CREAM.GM. TP SCH (20:30)
[2020-01-14] MEDS: NIFEDIPINE ER 30 MG TAB PO SCH (20:50)
--- NOTE | 2020-01-14 21:00 | NUR ---
DRESSING CHANGE: PER MD ORDER DRESSING CHANGE DONE TO LEFT KNEE. PACKED WITH 1/4 IN PLAIN PACKING AND TP GENTAMICIN COVERED WITH DRY DRESSING. PT TOLERATED WELL. PT WILL CONTINUE TO BE MONITORED.
[2020-01-15 00:04] VITALS: BP 131/61
[2020-01-15] MEDS: ZOSYN 3.375GM+NS 50ML 50 ML IV SCH ×3 (00:57→17:43)
[2020-01-15 04:04] VITALS: BP 142/54
[2020-01-15 05:47] LABS: HEMATOCRIT 31.7 % (42-54); MEAN CORPUSCULAR HEMOGLOBIN 30.2 pg (27.0-33.0); MEAN CORPUSCULAR HGB CONC 31.2 g/dL (32.0-36.0); MEAN CORPUSCULAR VOLUME 96.6 fL (79-99); RED BLOOD CELL COUNT(AUTO) 3.28 MIL/uL (4.50-6.20); RED CELL DISTRIBUTION WIDTH 13.3 % (11.0-15.5)
--- NOTE | 2020-01-15 06:00 | NUR ---
VANCO TROUGH 8.9 THIS AM. FAXED LAB REPORT TO PHARMACY.
[2020-01-15 06:04] LABS: CREATININE 1.1 mg/dL (0.5-1.5); POTASSIUM 3.9 mmol/L (3.5-5.1)
[2020-01-15] MEDS: VANCOMYCIN 1GM+NS 250ML 250 ML IV SCH ×3 (06:25→22:22)
[2020-01-15] MEDS: LEVOTHYROXINE 100 MCG TABLET PO SCH (06:25)
[2020-01-15] MEDS: INSULIN HUMULIN R 100 UNIT/ML 3ML SQ SCH ×4 (06:26→20:19)
[2020-01-15 06:28] LABS: HEMOGLOBIN A1C 4.6 % (4.0-6.0)
[2020-01-15 08:00] VITALS: BP 137/65
[2020-01-15] MEDS: BALSALAZIDE DISODIUM 2250 MG PO SCH ×2 (09:00→20:35)
[2020-01-15] MEDS: MIRABEGRON 50 MG PO SCH (09:00)
[2020-01-15] MEDS: ***HM*** (Alfuzosin HCl 10 MG) PO SCH (09:00)
[2020-01-15] MEDS: ENABLEX PO SCH (09:00)
[2020-01-15] MEDS: MULTIVITAMIN WITH MINERALS TABLET PO SCH (09:40)
[2020-01-15] MEDS: CELECOXIB 200 MG CAP PO SCH (09:40)
[2020-01-15] MEDS: ASPIRIN 81 MG EC TAB PO SCH (09:41)
[2020-01-15] MEDS: PANTOPRAZOLE SODIUM 40 MG TABLET.DR PO SCH (09:41)
[2020-01-15] MEDS: METFORMIN HCL 500 MG TAB.SR.24H PO SCH (09:41)
[2020-01-15] MEDS: FLUTICASONE/VILANTEROL 1 EACH AER.POW.BA IH SCH ×2 (09:41→20:26)
[2020-01-15] MEDS: LOSARTAN 100 MG TABLET PO SCH (09:41)
--- NOTE | 2020-01-15 10:30 | NUR ---
DRESSING CHANGE TO LEFT KNEE. LARGE AMOUNT OF PURULENT DRAINAGE WITH NO ODOR NOTED. NEW PACKING IMPREGNATED WITH GENTAMYCIN OINTMENT PACKED INTO OPEN WOUND. PATIENT TOLERATED PROCEDURE WELL, PATIENT VOICED NO COMPLAINTS OF PAIN OR DISCOMFORT AT THIS TIME.
[2020-01-15 12:00] VITALS: BP 137/52
[2020-01-15 16:00] VITALS: BP 147/51
[2020-01-15] MEDS: SIMVASTATIN 20 MG TABLET PO SCH (17:43)
[2020-01-15] MEDS: NIFEDIPINE ER 30 MG TAB PO SCH (20:25)
[2020-01-15] MEDS: FUROSEMIDE 10 MG/ML 4ML VIAL IV SCH (22:21)
[2020-01-15 23:38] VITALS: BP 113/65
[2020-01-16] MEDS: ZOSYN 3.375GM+NS 50ML 50 ML IV SCH ×3 (01:11→18:06)
[2020-01-16 04:00] VITALS: BP 141/61
[2020-01-16 06:05] LABS: HEMATOCRIT 30.7 % (42-54); MEAN CORPUSCULAR HEMOGLOBIN 30.3 pg (27.0-33.0); MEAN CORPUSCULAR HGB CONC 31.6 g/dL (32.0-36.0); MEAN CORPUSCULAR VOLUME 95.9 fL (79-99); RED BLOOD CELL COUNT(AUTO) 3.2 MIL/uL (4.50-6.20)
[2020-01-16 06:38] LABS: ABG BASE EXCESS 0.5 mmol/L (-2.0-3.0); ABG HCO3 23.9 mmol/L (21.0-28.0); ABG OXYGEN SATURATION 95.8 % (95.0-99.0); ABG PCO2 35 mmHg (35-48)
[2020-01-16 07:01] LABS: CREATININE 1.1 mg/dL (0.5-1.5); POTASSIUM 3.9 mmol/L (3.5-5.1)
[2020-01-16] MEDS: INSULIN HUMULIN R 100 UNIT/ML 3ML SQ SCH ×4 (07:30→20:53)
[2020-01-16] MEDS: LIOTHYRONINE SODIUM PO SCH (07:30)
[2020-01-16] MEDS: LEVOTHYROXINE 100 MCG TABLET PO SCH (07:30)
--- NOTE | 2020-01-16 08:39 | NUR ---
DRESSING CHANGE TO LEFT KNEE COMPLETED PER MD ORDERS.WOUND CLEANSED WITH NS. PACKING MOISTENED WITH GENTAMYCIN. DRY GAUZE DRESSING PLACED OVER WOUND, SECURED WITH MEDIPORE TAPE. PT AVINASH WELL. NO C/O PAIN.
[2020-01-16 08:46] VITALS: BP 161/72
[2020-01-16] MEDS: BALSALAZIDE DISODIUM 2250 MG PO SCH ×2 (09:00→20:53)
[2020-01-16] MEDS: MIRABEGRON 50 MG PO SCH (09:00)
[2020-01-16] MEDS: ENABLEX PO SCH (09:00)
[2020-01-16] MEDS: ***HM*** (Alfuzosin HCl 10 MG) PO SCH (09:00)
[2020-01-16] MEDS: VANCOMYCIN 1GM+NS 250ML 250 ML IV SCH (09:22)
[2020-01-16] MEDS: ASPIRIN 81 MG EC TAB PO SCH (09:26)
[2020-01-16] MEDS: PANTOPRAZOLE SODIUM 40 MG TABLET.DR PO SCH (09:26)
[2020-01-16] MEDS: FUROSEMIDE 10 MG/ML 4ML VIAL IV SCH ×2 (09:26→20:42)
[2020-01-16] MEDS: LOSARTAN 100 MG TABLET PO SCH (09:27)
[2020-01-16] MEDS: METFORMIN HCL 500 MG TAB.SR.24H PO SCH (09:27)
[2020-01-16] MEDS: CELECOXIB 200 MG CAP PO SCH (09:27)
[2020-01-16] MEDS: MULTIVITAMIN WITH MINERALS TABLET PO SCH (09:27)
[2020-01-16] MEDS: FLUTICASONE/VILANTEROL 1 EACH AER.POW.BA IH SCH ×2 (09:28→20:43)
[2020-01-16] MEDS ORDERED: COMPOUND IV REFRIGERATED 1 EACH IVSOLN MISC PRN (10:15)
[2020-01-16 12:27] VITALS: BP 106/73
[2020-01-16] MEDS: VANCOMYCIN 750MG + NS 250 ML IV SCH ×4 (15:00→21:45)
[2020-01-16] MEDS: SIMVASTATIN 20 MG TABLET PO SCH (18:06)
--- NOTE | 2020-01-16 19:20 | NUR ---
CALL RECEIVED FROM DR WHITE REGARDING CONSULT FOR LEFT KNEE ABSCESS. PER DR. WHITE, KEEP PATIENT NPO AFTER MIDNIGHT AND WILL SEE PATIENT IN AM FOR EVALUATION OF LEFT KNEE.
[2020-01-16 19:27] VITALS: BP 141/61
[2020-01-16 20:00] VITALS: BP 157/69
[2020-01-16] MEDS: NIFEDIPINE ER 30 MG TAB PO SCH (20:42)
--- NOTE | 2020-01-16 22:10 | NUR ---
BEHAVIOR Went to start an iv,pt attempted to caress and touch my arm,told him not to do it.
[2020-01-17] VITALS (7 sets, daily range): BP systolic 126–157; BP diastolic 54–69
[2020-01-17] MEDS: ZOSYN 3.375GM+NS 50ML 50 ML IV SCH ×3 (01:00→20:00)
[2020-01-17] MEDS: VANCOMYCIN 750MG + NS 250 ML IV SCH ×6 (05:43→22:33)
[2020-01-17] MEDS: LIOTHYRONINE SODIUM PO SCH (05:44)
[2020-01-17] MEDS: LEVOTHYROXINE 100 MCG TABLET PO SCH ×2 (05:44→09:59)
[2020-01-17 05:54] LABS: HEMATOCRIT 33.3 % (42-54); MEAN CORPUSCULAR HEMOGLOBIN 30.1 pg (27.0-33.0); MEAN CORPUSCULAR HGB CONC 31.8 g/dL (32.0-36.0); MEAN CORPUSCULAR VOLUME 94.6 fL (79-99); RED BLOOD CELL COUNT(AUTO) 3.52 MIL/uL (4.50-6.20); RED CELL DISTRIBUTION WIDTH 13.1 % (11.0-15.5); WHITE BLOOD COUNT (AUTO) 6.9 K/uL (4.8-10.8)
[2020-01-17] MEDS: INSULIN HUMULIN R 100 UNIT/ML 3ML SQ SCH ×4 (05:54→21:00)
--- NOTE | 2020-01-17 06:00 | NUR ---
SHOWER Pt took a shower assisted per Isacc Zhang.
[2020-01-17 06:01] LABS: CREATININE 1.2 mg/dL (0.5-1.5); CRP QUANTITATIVE 13.2 mg/L (0.00-9.0); POTASSIUM 3.7 mmol/L (3.5-5.1)
[2020-01-17 06:15] LABS: INR 1.12 (0.85-1.15)
[2020-01-17] MEDS: PANTOPRAZOLE SODIUM 40 MG TABLET.DR PO SCH (09:59)
[2020-01-17] MEDS: CELECOXIB 200 MG CAP PO SCH (10:00)
[2020-01-17] MEDS: LOSARTAN 100 MG TABLET PO SCH (10:00)
[2020-01-17] MEDS: METFORMIN HCL 500 MG TAB.SR.24H PO SCH (10:00)
[2020-01-17] MEDS: ASPIRIN 81 MG EC TAB PO SCH (10:00)
[2020-01-17] MEDS: MULTIVITAMIN WITH MINERALS TABLET PO SCH (10:00)
[2020-01-17] MEDS: FLUTICASONE/VILANTEROL 1 EACH AER.POW.BA IH SCH ×2 (10:01→20:14)
[2020-01-17] MEDS: FUROSEMIDE 10 MG/ML 4ML VIAL IV SCH ×2 (10:02→19:55)
[2020-01-17] MEDS: ENABLEX PO SCH (10:03)
[2020-01-17] MEDS: BALSALAZIDE DISODIUM 2250 MG PO SCH ×2 (10:03→20:14)
[2020-01-17] MEDS: MIRABEGRON 50 MG PO SCH (10:03)
[2020-01-17] MEDS: ***HM*** (Alfuzosin HCl 10 MG) PO SCH (10:04)
[2020-01-17] MEDS: SIMVASTATIN 20 MG TABLET PO SCH (18:13)
[2020-01-17] MEDS: NIFEDIPINE ER 30 MG TAB PO SCH (19:55)
[2020-01-18 03:46] VITALS: BP 142/75
[2020-01-18 04:27] LABS: EOSINOPHILS % (AUTO) 4.8 % (0.0-8.0); HEMATOCRIT 32.8 % (42-54); LYMPHOCYTES % (AUTO) 28.1 % (21.0-51.0); MEAN CORPUSCULAR VOLUME 93.7 fL (79-99); MONOCYTES % (AUTO) 8.8 % (3.0-13.0); NEUTROPHILS % (AUTO) 56.9 % (40.0-77.0); PLATELET COUNT (AUTO) 242 K/uL (130-400); RED CELL DISTRIBUTION WIDTH 13.1 % (11.0-15.5); WHITE BLOOD COUNT (AUTO) 6.7 K/uL (4.8-10.8)
[2020-01-18 04:35] LABS: CREATININE 1.3 mg/dL (0.5-1.5); POTASSIUM 3.4 mmol/L (3.5-5.1)
[2020-01-18] MEDS: VANCOMYCIN 750MG + NS 250 ML IV SCH ×2 (05:22)
[2020-01-18] MEDS: ZOSYN 3.375GM+NS 50ML 50 ML IV SCH ×3 (05:22→21:12)
[2020-01-18] MEDS: INSULIN HUMULIN R 100 UNIT/ML 3ML SQ SCH ×4 (07:30→21:00)
[2020-01-18 07:54] VITALS: BP 170/74
[2020-01-18] MEDS: CELECOXIB 200 MG CAP PO SCH (08:23)
[2020-01-18] MEDS: METFORMIN HCL 500 MG TAB.SR.24H PO SCH (08:23)
[2020-01-18] MEDS: LIOTHYRONINE SODIUM PO SCH (08:23)
[2020-01-18] MEDS: ASPIRIN 81 MG EC TAB PO SCH (08:23)
[2020-01-18] MEDS: LOSARTAN 100 MG TABLET PO SCH (08:24)
[2020-01-18] MEDS: PANTOPRAZOLE SODIUM 40 MG TABLET.DR PO SCH (08:24)
[2020-01-18] MEDS: MULTIVITAMIN WITH MINERALS TABLET PO SCH (08:24)
[2020-01-18] MEDS: FUROSEMIDE 10 MG/ML 4ML VIAL IV SCH ×2 (08:24→21:12)
[2020-01-18] MEDS: ENABLEX PO SCH (08:24)
[2020-01-18] MEDS: ***HM*** (Alfuzosin HCl 10 MG) PO SCH (08:24)
[2020-01-18] MEDS: FLUTICASONE/VILANTEROL 1 EACH AER.POW.BA IH SCH ×2 (08:24→21:00)
[2020-01-18] MEDS: MIRABEGRON 50 MG PO SCH (08:24)
[2020-01-18] MEDS: BALSALAZIDE DISODIUM 2250 MG PO SCH ×2 (08:24→21:00)
[2020-01-18 11:30] VITALS: BP 110/57
[2020-01-18 16:03] VITALS: BP 145/68
[2020-01-18] MEDS: SIMVASTATIN 20 MG TABLET PO SCH (16:53)
[2020-01-18 20:00] VITALS: BP 136/72
[2020-01-18] MEDS: NIFEDIPINE ER 30 MG TAB PO SCH (21:00)
[2020-01-18 23:39] VITALS: BP 133/72
[2020-01-19] VITALS (24 sets, daily range): BP systolic 94–148; BP diastolic 41–82
[2020-01-19] MEDS: VANCOMYCIN 500MG+NS 100ML 100 ML IV SCH ×3 (04:52→21:14)
[2020-01-19] MEDS: ZOSYN 3.375GM+NS 50ML 50 ML IV SCH ×4 (04:52→21:12)
[2020-01-19 05:56] LABS: MEAN CORPUSCULAR HEMOGLOBIN 29.8 pg (27.0-33.0); MEAN CORPUSCULAR HGB CONC 31.8 g/dL (32.0-36.0); MEAN CORPUSCULAR VOLUME 93.8 fL (79-99); RED BLOOD CELL COUNT(AUTO) 3.52 MIL/uL (4.50-6.20); RED CELL DISTRIBUTION WIDTH 13.2 % (11.0-15.5); WHITE BLOOD COUNT (AUTO) 7.5 K/uL (4.8-10.8)
[2020-01-19 06:19] LABS: ALBUMIN 3.2 g/dL (3.5-5.0); BILIRUBIN,TOTAL 0.4 mg/dL (0.2-1.0); CREATININE 1.4 mg/dL (0.5-1.5); MAGNESIUM 1.8 mg/dL (1.80-2.40); PHOSPHORUS 4.1 mg/dL (2.5-4.9); POTASSIUM 3.3 mmol/L (3.5-5.1); TOTAL PROTEIN, SERUM 7.3 g/dL (6.0-8.3)
[2020-01-19] MEDS: INSULIN HUMULIN R 100 UNIT/ML 3ML SQ SCH ×4 (07:30→21:00)
[2020-01-19] MEDS: METFORMIN HCL 500 MG TAB.SR.24H PO SCH (08:00)
[2020-01-19] MEDS: ASPIRIN 81 MG EC TAB PO SCH (08:00)
[2020-01-19] MEDS: CELECOXIB 200 MG CAP PO SCH (08:00)
[2020-01-19] MEDS: MIRABEGRON 50 MG PO SCH (09:00)
[2020-01-19] MEDS: ENABLEX PO SCH (09:00)
[2020-01-19] MEDS: BALSALAZIDE DISODIUM 2250 MG PO SCH ×2 (09:00→21:00)
[2020-01-19] MEDS: MULTIVITAMIN WITH MINERALS TABLET PO SCH (09:00)
[2020-01-19] MEDS: PANTOPRAZOLE SODIUM 40 MG TABLET.DR PO SCH (09:00)
[2020-01-19] MEDS: LOSARTAN 100 MG TABLET PO SCH (09:00)
[2020-01-19] MEDS: ***HM*** (Alfuzosin HCl 10 MG) PO SCH (09:00)
[2020-01-19] MEDS: FUROSEMIDE 10 MG/ML 4ML VIAL IV SCH ×2 (09:15→21:13)
--- NOTE | 2020-01-19 10:00 | NUR ---
PREOP TRANSFERRED PT TO HOLDING. PT A/O X3 IN NO DISTRESS. PT ORIENTED TO ROOM AND CALL LIGHT. WILL CONTINUE TO MONITOR PT. PT HAS DRESSING TO LEFT KNEE CLEAN AND DRY. PT HAS EDEMA AND ERYTHEMA TO LEGS WITH PRUNING
[2020-01-19] MEDS ORDERED: SODIUM CHLORIDE 0.9% 1000ML 1,000 ML IV ONE (10:18)
[2020-01-19] MEDS ORDERED: SUCCINYLCHOLINE CHLORIDE 20 MG/ML 10 ML VIAL ONE (10:47)
[2020-01-19] MEDS ORDERED: LIDOCAINE PF 2% 5ML ABBOJECT ONE (10:47)
[2020-01-19] MEDS ORDERED: ONDANSETRON HCL 4 MG/2 ML VIAL ONE (10:48)
[2020-01-19] MEDS ORDERED: GLYCOPYRROLATE 1 MG/5 ML SYRINGE ONE (10:48)
[2020-01-19] MEDS ORDERED: ROCURONIUM 10MG/1ML SYR 10 MG/ML ML ONE (10:48)
[2020-01-19] MEDS ORDERED: NEOSTIGMINE 5MG/5ML SYR IV ONE (10:48)
[2020-01-19] MEDS ORDERED: MIDAZOLAM HCL 1 MG/ML 2ML VIAL ONE (10:48)
[2020-01-19] MEDS ORDERED: PROPOFOL 10 MG/ML 20ML VIAL IV ONE (10:48)
[2020-01-19] MEDS ORDERED: DEXAMETHASONE SOD PHOSPHATE 10MG/ML 1ML VIAL ONE (10:48)
[2020-01-19] MEDS ORDERED: FENTANYL CITRATE PF 50 MCG/1 ML 2ML VIAL ONE (10:49)
[2020-01-19] MEDS ORDERED: MEPERIDINE-PF 25 MG/ML SYG ONE (10:57)
[2020-01-19] MEDS ORDERED: SUGAMMADEX SODIUM 200 MG/2 ML VIAL IV ONE (11:44)
[2020-01-19] MEDS ORDERED: KETOROLAC TROMETHAMINE 30MG/ML ONE (11:52)
--- NOTE | 2020-01-19 13:05 | NUR ---
PROCEDURE PATIENT S/P LEFT KNEE I&D WITH WOUND VAC AT [address] CARDONA. PATIENT STABLE AT THIS TIME.
[2020-01-19] MEDS ORDERED: ACETAMINOPHEN 325 MG TAB PO PRN (13:30)
[2020-01-19] MEDS ORDERED: OXYCODONE/ACETAMIN 5/325MG TAB PO PRN ×2 (13:45)
[2020-01-19 14:04] LABS: INR 1.09 (0.85-1.15); PROTHROMBIN TIME 11.7 SEC (9.6-11.6)
[2020-01-19] MEDS: SIMVASTATIN 20 MG TABLET PO SCH (17:36)
[2020-01-19] MEDS: FLUTICASONE/VILANTEROL 1 EACH AER.POW.BA IH SCH ×2 (17:36→21:00)
[2020-01-19] MEDS: NIFEDIPINE ER 30 MG TAB PO SCH (21:13)
[2020-01-20] VITALS (7 sets, daily range): BP systolic 102–155; BP diastolic 43–61
[2020-01-20] MEDS: ZOSYN 3.375GM+NS 50ML 50 ML IV SCH ×3 (04:04→20:08)
[2020-01-20 04:57] LABS: BASOPHILS % (AUTO) 0.3 % (0.0-5.0); EOSINOPHILS % (AUTO) 0.5 % (0.0-8.0); HEMATOCRIT 31.9 % (42-54); MEAN CORPUSCULAR VOLUME 93.8 fL (79-99); MONOCYTES % (AUTO) 7.5 % (3.0-13.0); NEUTROPHILS % (AUTO) 70.4 % (40.0-77.0); PLATELET COUNT (AUTO) 265 K/uL (130-400); RED CELL DISTRIBUTION WIDTH 13.2 % (11.0-15.5); WHITE BLOOD COUNT (AUTO) 9.5 K/uL (4.8-10.8)
[2020-01-20 05:29] LABS: CREATININE 1.3 mg/dL (0.5-1.5); POTASSIUM 3.4 mmol/L (3.5-5.1)
[2020-01-20] MEDS: VANCOMYCIN 500MG+NS 100ML 100 ML IV SCH ×3 (05:54→20:08)
[2020-01-20] MEDS: LIOTHYRONINE PO SCH ×2 (05:56→07:30)
[2020-01-20] MEDS: LEVOTHYROXINE 100 MCG TABLET PO SCH ×2 (05:56→07:30)
[2020-01-20] MEDS: INSULIN HUMULIN R 100 UNIT/ML 3ML SQ SCH ×4 (06:46→20:12)
[2020-01-20] MEDS: ***HM*** (Alfuzosin HCl 10 MG) PO SCH (09:00)
[2020-01-20] MEDS: BALSALAZIDE DISODIUM 2250 MG PO SCH ×2 (09:00→20:09)
[2020-01-20] MEDS: MIRABEGRON 50 MG PO SCH (09:00)
[2020-01-20] MEDS: ENABLEX PO SCH (09:00)
[2020-01-20] MEDS: FLUTICASONE/VILANTEROL 1 EACH AER.POW.BA IH SCH ×2 (09:38→20:10)
[2020-01-20] MEDS: CELECOXIB 200 MG CAP PO SCH (09:39)
[2020-01-20] MEDS: PANTOPRAZOLE SODIUM 40 MG TABLET.DR PO SCH (09:39)
[2020-01-20] MEDS: METFORMIN HCL 500 MG TAB.SR.24H PO SCH (09:39)
[2020-01-20] MEDS: FUROSEMIDE 10 MG/ML 4ML VIAL IV SCH ×2 (09:39→20:09)
[2020-01-20] MEDS: LOSARTAN 100 MG TABLET PO SCH (09:39)
[2020-01-20] MEDS: ASPIRIN 81 MG EC TAB PO SCH (09:39)
[2020-01-20] MEDS: MULTIVITAMIN WITH MINERALS TABLET PO SCH (09:39)
[2020-01-20] MEDS: SIMVASTATIN 20 MG TABLET PO SCH (16:24)
--- NOTE | 2020-01-20 17:15 | NUR ---
PICC INSERTED TO RT ARM, 5FR DUAL LUMEN, UNABLE TO PICK-UP BULLSEYE, CXR DONE PENDING TIP VERIFICATION.
[2020-01-20] MEDS: NIFEDIPINE ER 30 MG TAB PO SCH (20:08)
[2020-01-21] MEDS: VANCOMYCIN 500MG+NS 100ML 100 ML IV SCH ×3 (02:57→20:23)
[2020-01-21] MEDS: ZOSYN 3.375GM+NS 50ML 50 ML IV SCH ×3 (02:57→20:09)
[2020-01-21 04:00] VITALS: BP 154/54
[2020-01-21] MEDS: LIOTHYRONINE PO SCH (05:23)
[2020-01-21] MEDS: LEVOTHYROXINE 100 MCG TABLET PO SCH (05:23)
[2020-01-21 05:58] LABS: BASOPHILS % (AUTO) 0.6 % (0.0-5.0); HEMATOCRIT 31.3 % (42-54); LYMPHOCYTES % (AUTO) 27.3 % (21.0-51.0); MEAN CORPUSCULAR HEMOGLOBIN 30.2 pg (27.0-33.0); MEAN CORPUSCULAR HGB CONC 31.3 g/dL (32.0-36.0); MEAN CORPUSCULAR VOLUME 96.3 fL (79-99); MONOCYTES % (AUTO) 6.9 % (3.0-13.0); NEUTROPHILS % (AUTO) 60.6 % (40.0-77.0); PLATELET COUNT (AUTO) 241 K/uL (130-400); RED BLOOD CELL COUNT(AUTO) 3.25 MIL/uL (4.50-6.20); RED CELL DISTRIBUTION WIDTH 13.4 % (11.0-15.5); WHITE BLOOD COUNT (AUTO) 8.7 K/uL (4.8-10.8)
[2020-01-21 06:19] LABS: ALBUMIN 2.9 g/dL (3.5-5.0); BILIRUBIN,TOTAL 0.3 mg/dL (0.2-1.0); CREATININE 1.4 mg/dL (0.5-1.5); MAGNESIUM 1.9 mg/dL (1.80-2.40); PHOSPHORUS 2.9 mg/dL (2.5-4.9); POTASSIUM 3.8 mmol/L (3.5-5.1); TOTAL PROTEIN, SERUM 6.7 g/dL (6.0-8.3)
[2020-01-21] MEDS: INSULIN HUMULIN R 100 UNIT/ML 3ML SQ SCH ×4 (06:28→20:20)
--- NOTE | 2020-01-21 07:30 | NUR ---
ASSESSMENT NOTE PT [id number] IN BED VS STABLE, WOUND VAC IS ON AND CONNECTED, VOICES NO PAIN AT THIS TIME.
[2020-01-21 08:00] VITALS: BP 160/59
[2020-01-21] MEDS: METFORMIN HCL 500 MG TAB.SR.24H PO SCH (08:29)
[2020-01-21] MEDS: CELECOXIB 200 MG CAP PO SCH (08:30)
[2020-01-21] MEDS: ASPIRIN 81 MG EC TAB PO SCH (08:30)
[2020-01-21] MEDS: FUROSEMIDE 10 MG/ML 4ML VIAL IV SCH ×2 (08:30→20:09)
[2020-01-21] MEDS: MULTIVITAMIN WITH MINERALS TABLET PO SCH (08:30)
[2020-01-21] MEDS: PANTOPRAZOLE SODIUM 40 MG TABLET.DR PO SCH (08:30)
[2020-01-21] MEDS: LOSARTAN 100 MG TABLET PO SCH (08:32)
[2020-01-21] MEDS: FLUTICASONE/VILANTEROL 1 EACH AER.POW.BA IH SCH ×2 (08:34→20:11)
[2020-01-21] MEDS: BALSALAZIDE DISODIUM 2250 MG PO SCH ×2 (08:43→20:11)
[2020-01-21] MEDS: ***HM*** (Alfuzosin HCl 10 MG) PO SCH (08:43)
[2020-01-21] MEDS: ENABLEX PO SCH (08:43)
[2020-01-21] MEDS: MIRABEGRON 50 MG PO SCH (08:44)
--- NOTE | 2020-01-21 12:26 | NUR ---
ROUNDING DR. ROCKWELL CAME TO SEE PT AT BEDSIDE.
[2020-01-21 12:35] VITALS: BP 125/56
[2020-01-21 17:17] VITALS: BP 117/51
[2020-01-21] MEDS: SIMVASTATIN 20 MG TABLET PO SCH (17:49)
[2020-01-21 19:53] VITALS: BP 126/55
[2020-01-21] MEDS: NIFEDIPINE ER 30 MG TAB PO SCH (20:09)
[2020-01-22] VITALS (7 sets, daily range): BP systolic 119–158; BP diastolic 47–135
[2020-01-22] MEDS: ZOSYN 3.375GM+NS 50ML 50 ML IV SCH ×3 (03:18→19:47)
[2020-01-22] MEDS: VANCOMYCIN 500MG+NS 100ML 100 ML IV SCH ×3 (03:18→20:09)
[2020-01-22] MEDS: LIOTHYRONINE PO SCH (05:15)
[2020-01-22] MEDS: LEVOTHYROXINE 100 MCG TABLET PO SCH (05:15)
[2020-01-22 05:47] LABS: BASOPHILS % (AUTO) 0.7 % (0.0-5.0); EOSINOPHILS % (AUTO) 4.7 % (0.0-8.0); HEMATOCRIT 32.3 % (42-54); LYMPHOCYTES % (AUTO) 22.9 % (21.0-51.0); MEAN CORPUSCULAR HEMOGLOBIN 29.6 pg (27.0-33.0); MEAN CORPUSCULAR HGB CONC 30.7 g/dL (32.0-36.0); MEAN CORPUSCULAR VOLUME 96.7 fL (79-99); MONOCYTES % (AUTO) 7.1 % (3.0-13.0); PLATELET COUNT (AUTO) 236 K/uL (130-400); RED BLOOD CELL COUNT(AUTO) 3.34 MIL/uL (4.50-6.20); RED CELL DISTRIBUTION WIDTH 13.4 % (11.0-15.5); WHITE BLOOD COUNT (AUTO) 8.3 K/uL (4.8-10.8)
[2020-01-22] MEDS: INSULIN HUMULIN R 100 UNIT/ML 3ML SQ SCH ×4 (05:54→20:11)
[2020-01-22 06:22] LABS: ALBUMIN 2.9 g/dL (3.5-5.0); BILIRUBIN,TOTAL 0.3 mg/dL (0.2-1.0); CREATININE 1.2 mg/dL (0.5-1.5); POTASSIUM 3.4 mmol/L (3.5-5.1); TOTAL PROTEIN, SERUM 6.6 g/dL (6.0-8.3)
[2020-01-22] MEDS: PANTOPRAZOLE SODIUM 40 MG TABLET.DR PO SCH (08:18)
[2020-01-22] MEDS: METFORMIN HCL 500 MG TAB.SR.24H PO SCH (08:18)
[2020-01-22] MEDS: MULTIVITAMIN WITH MINERALS TABLET PO SCH (08:18)
[2020-01-22] MEDS: ASPIRIN 81 MG EC TAB PO SCH (08:18)
[2020-01-22] MEDS: CELECOXIB 200 MG CAP PO SCH (08:19)
[2020-01-22] MEDS: LOSARTAN 100 MG TABLET PO SCH (08:19)
[2020-01-22] MEDS: FUROSEMIDE 10 MG/ML 4ML VIAL IV SCH ×2 (08:19→20:12)
[2020-01-22] MEDS: FLUTICASONE/VILANTEROL 1 EACH AER.POW.BA IH SCH ×2 (08:40→20:09)
[2020-01-22] MEDS: BALSALAZIDE DISODIUM 2250 MG PO SCH ×2 (08:44→20:11)
[2020-01-22] MEDS: ENABLEX PO SCH (08:44)
[2020-01-22] MEDS: MIRABEGRON 50 MG PO SCH (08:44)
[2020-01-22] MEDS: ***HM*** (Alfuzosin HCl 10 MG) PO SCH (08:44)
[2020-01-22] MEDS: SIMVASTATIN 20 MG TABLET PO SCH (16:25)
[2020-01-22] MEDS: NIFEDIPINE ER 30 MG TAB PO SCH (20:09)
--- NOTE | 2020-01-23 02:45 | NUR ---
Patient wound vac started alarming that it was occluded. I spoke to Delores VAZQUEZ, who checked it out and stated the center of the wound vac would have to be changed due to tube was clogged Patient made aware informed him that the materials were being picked up in supplies. Rock VAZQUEZ and Mendoza RN changed the tubing needed to be replaced and wound vac back to suctioning, without any delay. Rock VAZQUEZ and Mendoza used sterile supplies and aseptic tech. patient tolerated procedure well.
[2020-01-23 04:25] VITALS: BP 127/50
[2020-01-23] MEDS: ZOSYN 3.375GM+NS 50ML 50 ML IV SCH ×2 (04:38→12:19)
[2020-01-23] MEDS: VANCOMYCIN 500MG+NS 100ML 100 ML IV SCH ×2 (04:39→12:18)
[2020-01-23] MEDS: INSULIN HUMULIN R 100 UNIT/ML 3ML SQ SCH ×2 (05:57→11:30)
[2020-01-23] MEDS: LEVOTHYROXINE 100 MCG TABLET PO SCH ×2 (06:05→08:31)
[2020-01-23] MEDS: LIOTHYRONINE PO SCH (06:05)
[2020-01-23 08:00] VITALS: BP 114/49
[2020-01-23] MEDS: METFORMIN HCL 500 MG TAB.SR.24H PO SCH (08:31)
[2020-01-23] MEDS: PANTOPRAZOLE SODIUM 40 MG TABLET.DR PO SCH (08:31)
[2020-01-23] MEDS: MULTIVITAMIN WITH MINERALS TABLET PO SCH (08:32)
[2020-01-23] MEDS: LOSARTAN 100 MG TABLET PO SCH (08:32)
[2020-01-23] MEDS: ASPIRIN 81 MG EC TAB PO SCH (08:32)
[2020-01-23] MEDS: CELECOXIB 200 MG CAP PO SCH (08:32)
[2020-01-23] MEDS: FLUTICASONE/VILANTEROL 1 EACH AER.POW.BA IH SCH (08:33)
--- NOTE | 2020-01-23 08:38 | NUR ---
MORNING MEDS PT TOOK SOME OF HIS OWN HOME MEDS INCLUDING BALSALAZID DISODIUM, ALFUZOSIN, ENEBLEX AND MIRABEGRON.
[2020-01-23] MEDS: ENABLEX PO SCH (08:40)
[2020-01-23] MEDS: MIRABEGRON 50 MG PO SCH (08:40)
[2020-01-23] MEDS: ***HM*** (Alfuzosin HCl 10 MG) PO SCH (08:40)
[2020-01-23] MEDS: BALSALAZIDE DISODIUM 2250 MG PO SCH (08:40)
[2020-01-23] MEDS: FUROSEMIDE 10 MG/ML 4ML VIAL IV SCH (08:43)
--- NOTE | 2020-01-23 11:00 | NUR ---
[facility] CM spoke to Tamara with [facility]. States patient has been accepted. Plan for d/c today. Addendum: 01/23/20 at 1422 by ROSA ALLEN CM Amended: Links added.
[2020-01-23 11:12] VITALS: BP 110/60
--- NOTE | 2020-01-23 15:58 | NUR ---
IN PRECENSE OF VOICE OVER ARTIST PT BELONGINGS WERE RETURN BACK, MONEY WAS COUNT BY PT.
== END 2020-01-23 17:10 | DRG 492 ==
LOC: EDH 16:27 → OBSVTOIN 17:35 → EDHIP 17:35 → 3BH 01-14 01:03
PROVIDERS: ADMIT Internal Medicine Critical Care Medicine; ATTEND Internal Medicine Critical Care Medicine
PROC: 5A09357 Assistance with Respiratory Ventilation, Less than 24 Consecutive Hours, Continuous Positive Airway Pressure (ICD-10-PCS; 2020-01-14)
PROC: 5A09357 Assistance with Respiratory Ventilation, Less than 24 Consecutive Hours, Continuous Positive Airway Pressure (ICD-10-PCS; 2020-01-15)
PROC: 02HV33Z Insertion of Infusion Device into Superior Vena Cava, Percutaneous Approach (ICD-10-PCS; 2020-01-19)
PROC: 0QCH0ZZ Extirpation of Matter from Left Tibia, Open Approach (ICD-10-PCS; principal; 2020-01-20)
PROC: 0QBH0ZZ Excision of Left Tibia, Open Approach (ICD-10-PCS; 2020-01-20)
PROC: 5A09357 Assistance with Respiratory Ventilation, Less than 24 Consecutive Hours, Continuous Positive Airway Pressure (ICD-10-PCS; 2020-01-20)
PROC: 5A09357 Assistance with Respiratory Ventilation, Less than 24 Consecutive Hours, Continuous Positive Airway Pressure (ICD-10-PCS; 2020-01-22)
PROC: 5A09357 Assistance with Respiratory Ventilation, Less than 24 Consecutive Hours, Continuous Positive Airway Pressure (ICD-10-PCS; 2020-01-23)
DX: T84.54XA Infection and inflammatory reaction due to internal left knee prosthesis, initial encounter (principal); I50.31 Acute diastolic (congestive) heart failure; L03.116 Cellulitis of left lower limb; L02.416 Cutaneous abscess of left lower limb; L03.115 Cellulitis of right lower limb; I87.2 Venous insufficiency (chronic) (peripheral); J44.9 Chronic obstructive pulmonary disease, unspecified; E11.9 Type 2 diabetes mellitus without complications; E66.01 Morbid (severe) obesity due to excess calories; I89.0 Lymphedema, not elsewhere classified; D64.9 Anemia, unspecified; E03.9 Hypothyroidism, unspecified; E78.5 Hyperlipidemia, unspecified; G47.33 Obstructive sleep apnea (adult) (pediatric); I07.1 Rheumatic tricuspid insufficiency; I25.10 Atherosclerotic heart disease of native coronary artery without angina pectoris; I27.20 Pulmonary hypertension, unspecified; I87.309 Chronic venous hypertension (idiopathic) without complications of unspecified lower extremity; I11.0 Hypertensive heart disease with heart failure; M79.5 Residual foreign body in soft tissue; M19.90 Unspecified osteoarthritis, unspecified site; Y92.89 Other specified places as the place of occurrence of the external cause; Y83.1 Surgical operation with implant of artificial internal device as the cause of abnormal reaction of the patient, or of later complication, without mention of misadventure at the time of the procedure; Z20.828 Contact with and (suspected) exposure to other viral communicable diseases; Z79.2 Long term (current) use of antibiotics; Z79.51 Long term (current) use of inhaled steroids; Z83.3 Family history of diabetes mellitus; Z96.653 Presence of artificial knee joint, bilateral; Z98.84 Bariatric surgery status; Z79.84 Long term (current) use of oral hypoglycemic drugs; Z79.899 Other long term (current) drug therapy; Z98.61 Coronary angioplasty status; Z68.36 Body mass index [BMI] 36.0-36.9, adult
CPT/HCPCS: 36415; 36600; 71045; 73562; 73700; 80048; 80053; 80202; 81001; 82550; 82803; 82948; 83036; 83605; 83735; 83874; 83880; 84100; 84145; 84484; 85025; 85027; 85610; 85651; 85730; 86140; 86900; 86901; 87040; 87070; 87076; 87088; 87205; 87426; 93005; 93306; 93356; 93970; 97039; A4606; C1894; G0378; G0463; J0330; J1100; J1885; J1940; J2001; J2175; J2250; J2405; J2543; J2704; J2710; J3010; J3370; J3490; J7030; J7050

== ENCOUNTER → 2020-01-13 | Outpatient (CLI) | payer MEDICARE | END | disposition home or self-care (01) | LOC: WHH 11:00 | PROVIDERS: ATTEND Family Medicine | DX: I83.028 Varicose veins of left lower extremity with ulcer other part of lower leg (principal); L97.822 Non-pressure chronic ulcer of other part of left lower leg with fat layer exposed; L02.416 Cutaneous abscess of left lower limb; I83.811 Varicose veins of right lower extremity with pain; E11.42 Type 2 diabetes mellitus with diabetic polyneuropathy; I87.2 Venous insufficiency (chronic) (peripheral); I89.0 Lymphedema, not elsewhere classified; I11.9 Hypertensive heart disease without heart failure; E03.9 Hypothyroidism, unspecified; G47.33 Obstructive sleep apnea (adult) (pediatric); E66.9 Obesity, unspecified; J44.9 Chronic obstructive pulmonary disease, unspecified; E78.5 Hyperlipidemia, unspecified; M19.90 Unspecified osteoarthritis, unspecified site; Z96.653 Presence of artificial knee joint, bilateral; Z68.38 Body mass index [BMI] 38.0-38.9, adult; Z90.49 Acquired absence of other specified parts of digestive tract; Z98.49 Cataract extraction status, unspecified eye | CPT/HCPCS: G0463 ==

== ENCOUNTER → 2020-03-23 | Outpatient (CLI) | payer MEDICARE ==
[~2020-03-23] MED LIST changes: +LIDOCAINE HCL 2% JELLY 5 ML TP ONE
== END | disposition home or self-care (01) ==
LOC: WHH 10:15
PROVIDERS: ATTEND Family Medicine
DX: T81.31XD Disruption of external operation (surgical) wound, not elsewhere classified, subsequent encounter (principal); I83.028 Varicose veins of left lower extremity with ulcer other part of lower leg; L97.822 Non-pressure chronic ulcer of other part of left lower leg with fat layer exposed; L02.416 Cutaneous abscess of left lower limb; I83.811 Varicose veins of right lower extremity with pain; E11.42 Type 2 diabetes mellitus with diabetic polyneuropathy; I87.2 Venous insufficiency (chronic) (peripheral); I89.0 Lymphedema, not elsewhere classified; I11.9 Hypertensive heart disease without heart failure; E03.9 Hypothyroidism, unspecified; G47.33 Obstructive sleep apnea (adult) (pediatric); E66.9 Obesity, unspecified; J44.9 Chronic obstructive pulmonary disease, unspecified; E78.5 Hyperlipidemia, unspecified; M19.90 Unspecified osteoarthritis, unspecified site; Z96.653 Presence of artificial knee joint, bilateral; Z68.38 Body mass index [BMI] 38.0-38.9, adult; Z90.49 Acquired absence of other specified parts of digestive tract; Z98.49 Cataract extraction status, unspecified eye; Y83.8 Other surgical procedures as the cause of abnormal reaction of the patient, or of later complication, without mention of misadventure at the time of the procedure
CPT/HCPCS: G0463

== ENCOUNTER → 2020-03-30 | Outpatient (CLI) | payer MEDICARE | END | disposition home or self-care (01) | LOC: WHH 09:00 | PROVIDERS: ATTEND Family Medicine | DX: T81.31XD Disruption of external operation (surgical) wound, not elsewhere classified, subsequent encounter (principal); I83.028 Varicose veins of left lower extremity with ulcer other part of lower leg; L97.822 Non-pressure chronic ulcer of other part of left lower leg with fat layer exposed; L02.416 Cutaneous abscess of left lower limb; I83.811 Varicose veins of right lower extremity with pain; E11.42 Type 2 diabetes mellitus with diabetic polyneuropathy; I87.2 Venous insufficiency (chronic) (peripheral); I89.0 Lymphedema, not elsewhere classified; I11.9 Hypertensive heart disease without heart failure; E03.9 Hypothyroidism, unspecified; G47.33 Obstructive sleep apnea (adult) (pediatric); E66.9 Obesity, unspecified; J44.9 Chronic obstructive pulmonary disease, unspecified; E78.5 Hyperlipidemia, unspecified; M19.90 Unspecified osteoarthritis, unspecified site; Z96.653 Presence of artificial knee joint, bilateral; Z68.38 Body mass index [BMI] 38.0-38.9, adult; Z90.49 Acquired absence of other specified parts of digestive tract; Z98.49 Cataract extraction status, unspecified eye; Y83.8 Other surgical procedures as the cause of abnormal reaction of the patient, or of later complication, without mention of misadventure at the time of the procedure | CPT/HCPCS: 11042 ==

== ENCOUNTER → 2020-04-17 | Outpatient (CLI) | payer MEDICARE ==
[~2020-04-17] MED LIST changes: -LIDOCAINE HCL 2% JELLY 5 ML TP ONE
== END | disposition home or self-care (01) ==
LOC: WHH 09:00
PROVIDERS: ATTEND Family Medicine
DX: I83.023 Varicose veins of left lower extremity with ulcer of ankle (principal); L97.828 Non-pressure chronic ulcer of other part of left lower leg with other specified severity; L02.416 Cutaneous abscess of left lower limb; I83.811 Varicose veins of right lower extremity with pain; E11.42 Type 2 diabetes mellitus with diabetic polyneuropathy; I87.2 Venous insufficiency (chronic) (peripheral); I89.0 Lymphedema, not elsewhere classified; I11.9 Hypertensive heart disease without heart failure; E03.9 Hypothyroidism, unspecified; G47.33 Obstructive sleep apnea (adult) (pediatric); E66.9 Obesity, unspecified; J44.9 Chronic obstructive pulmonary disease, unspecified; E78.5 Hyperlipidemia, unspecified; M19.90 Unspecified osteoarthritis, unspecified site; Z96.653 Presence of artificial knee joint, bilateral; Z68.38 Body mass index [BMI] 38.0-38.9, adult; Z90.49 Acquired absence of other specified parts of digestive tract; Z98.49 Cataract extraction status, unspecified eye
CPT/HCPCS: G0463

== ENCOUNTER → 2020-06-13 | Outpatient (CLI) | payer MEDICARE | END | disposition home or self-care (01) | LOC: SHCH 11:02 | PROVIDERS: ATTEND Internal Medicine Cardiovascular Disease | DX: I87.2 Venous insufficiency (chronic) (peripheral) (principal) | CPT/HCPCS: 93970 ==

== ENCOUNTER → 2021-02-20 | Outpatient (CLI) | payer MEDICARE | END | disposition home or self-care (01) | LOC: RAH 12:27 | PROVIDERS: ATTEND Family Medicine | DX: M47.812 Spondylosis without myelopathy or radiculopathy, cervical region (principal); M48.02 Spinal stenosis, cervical region; M25.462 Effusion, left knee; M25.512 Pain in left shoulder; M25.511 Pain in right shoulder; Z96.652 Presence of left artificial knee joint | CPT/HCPCS: 72050; 73030; 73700 ==

== ENCOUNTER → 2022-01-22 | Outpatient (CLI) | payer MEDICARE ==
[~2022-01-22] MED LIST changes: +LIDOCAINE HCL 4% LTA SOL 4 ML VIAL TP ONE; +SILVER NITRATE APPLICATOR 1 SWAB TP ONE
== END | disposition home or self-care (01) ==
LOC: WHH 11:42
PROVIDERS: ATTEND Family Medicine
DX: S91.105A Unspecified open wound of left lesser toe(s) without damage to nail, initial encounter (principal); E11.621 Type 2 diabetes mellitus with foot ulcer; L97.522 Non-pressure chronic ulcer of other part of left foot with fat layer exposed; E11.42 Type 2 diabetes mellitus with diabetic polyneuropathy; L60.8 Other nail disorders; E03.9 Hypothyroidism, unspecified; E78.5 Hyperlipidemia, unspecified; G47.30 Sleep apnea, unspecified; E66.9 Obesity, unspecified; J44.9 Chronic obstructive pulmonary disease, unspecified; I11.9 Hypertensive heart disease without heart failure; I89.0 Lymphedema, not elsewhere classified; M48.00 Spinal stenosis, site unspecified; M79.675 Pain in left toe(s); M47.812 Spondylosis without myelopathy or radiculopathy, cervical region; M19.90 Unspecified osteoarthritis, unspecified site; Z68.38 Body mass index [BMI] 38.0-38.9, adult; Z98.890 Other specified postprocedural states; W22.8XXA Striking against or struck by other objects, initial encounter; Y93.89 Activity, other specified; Y92.89 Other specified places as the place of occurrence of the external cause; Y99.8 Other external cause status
CPT/HCPCS: 11730; A4450

== ENCOUNTER → 2022-02-06 | Outpatient (CLI) | payer MEDICARE ==
[~2022-02-06] MED LIST changes: -LIDOCAINE HCL 4% LTA SOL 4 ML VIAL TP ONE; -SILVER NITRATE APPLICATOR 1 SWAB TP ONE
== END | disposition home or self-care (01) ==
LOC: LAB 14:43
PROVIDERS: ATTEND Internal Medicine Cardiovascular Disease
DX: R60.9 Edema, unspecified (principal)
CPT/HCPCS: 36415; 83880

== ENCOUNTER → 2022-04-16 | Outpatient (CLI) | payer MEDICARE | END | disposition home or self-care (01) | LOC: SHCH 14:17 | PROVIDERS: ATTEND Internal Medicine Cardiovascular Disease | DX: I87.2 Venous insufficiency (chronic) (peripheral) (principal) | CPT/HCPCS: 93970 ==

== ENCOUNTER → 2022-04-23 | Outpatient (CLI) | payer MEDICARE | END | disposition home or self-care (01) | LOC: SHCH 10:05 | PROVIDERS: ATTEND Internal Medicine Cardiovascular Disease | DX: I35.8 Other nonrheumatic aortic valve disorders (principal); I11.9 Hypertensive heart disease without heart failure; R60.9 Edema, unspecified; E11.9 Type 2 diabetes mellitus without complications; E78.5 Hyperlipidemia, unspecified | CPT/HCPCS: 93306 ==

== ENCOUNTER 2022-05-20 07:55 | Day surgery (SDC) | payer MEDICARE ==
[2022-05-16 10:44] VITALS: BP 152/65
[2022-05-16 10:48] LABS: BASOPHILS % (AUTO) 0.3 % (0.0-5.0); EOSINOPHILS % (AUTO) 3.5 % (0.0-8.0); HEMATOCRIT 35.6 % (42-54); LYMPHOCYTES % (AUTO) 22.9 % (21.0-51.0); MEAN CORPUSCULAR HEMOGLOBIN 32.4 pg (27.0-33.0); MEAN CORPUSCULAR HGB CONC 32.9 g/dL (32.0-36.0); MEAN CORPUSCULAR VOLUME 98.6 fL (79-99); NEUTROPHILS % (AUTO) 66.6 % (40.0-77.0); PLATELET COUNT (AUTO) 220 K/uL (130-400); RED BLOOD CELL COUNT(AUTO) 3.61 MIL/uL (4.50-6.20); WHITE BLOOD COUNT (AUTO) 7.6 K/uL (4.8-10.8)
[2022-05-16 10:58] LABS: POTASSIUM 3.4 mmol/L (3.5-5.1)
[2022-05-16 11:00] LABS: INR 0.99 (0.85-1.15); PROTHROMBIN TIME 10.8 SEC (9.6-11.6)
[2022-05-16 11:01] LABS: PARTIAL THROMBOPLASTIN TIME 27.4 SEC (26.3-35.5)
[~2022-05-20] VITALS: Ht 180.3 cm; Wt 122.7 kg
[2022-05-20] VITALS (7 sets, daily range): BP systolic 130–166; BP diastolic 42–68
[~2022-05-20 07:55] MED LIST changes: -ASPI-888 PO; +ESOM40CA54 PO; +FOLIC ACID PO; +FURO40TA5 PO; +HYDRO EYE PO; +METAMUCIL PO; -METF-910 PO; +MV-M1TAB20 PO; +SAW450CA7 PO; +UBID1CAP56 PO; +VIBE75TA PO
[2022-05-20] MEDS ORDERED: LIDOCAINE HCL 400MG/20ML VIAL ONE ×2 (10:31→11:11)
[2022-05-20] MEDS ORDERED: FENTANYL CITRATE PF 50 MCG/1 ML 2ML VIAL ONE (10:31)
[2022-05-20] MEDS ORDERED: MIDAZOLAM HCL 1 MG/ML 2ML VIAL ONE (10:31)
[2022-05-20] MEDS ORDERED: IOHEXOL 350 MG/ML 100ML INFUS..BTL IV ONE (10:31)
[2022-05-20] MEDS ORDERED: HEPARIN 10,000 UNIT/10ML (1,000 UNIT/ML) VIAL ONE (11:15)
[2022-05-20] MEDS ORDERED: ASPIRIN 325MG EC TAB PO ONE (11:38)
[2022-05-20] MEDS ORDERED: CLOPIDOGREL 300MG TAB ONE (11:38)
[2022-05-20] MEDS ORDERED: GLUCAGON 1MG KIT 1 MG ML IM PRN (12:00)
[2022-05-20] MEDS ORDERED: DEXTROSE 50%-WATER 50 ML DISP.SYRIN IV PRN (12:00)
[2022-05-20] MEDS ORDERED: CLOP-31 PO (12:29)
[2022-05-20] MEDS ORDERED: ASPI-1197 PO (12:29)
[2022-05-20] MEDS ORDERED: INSULIN HUMULIN R 100 UNIT/ML 3ML SQ SCH (16:30)
== END 2022-05-20 14:10 | disposition home or self-care (01) ==
LOC: DAH 07:55
PROVIDERS: ATTEND Internal Medicine Cardiovascular Disease
DX: I87.1 Compression of vein (principal); I87.2 Venous insufficiency (chronic) (peripheral); I10 Essential (primary) hypertension; E11.51 Type 2 diabetes mellitus with diabetic peripheral angiopathy without gangrene; K21.9 Gastro-esophageal reflux disease without esophagitis; I95.9 Hypotension, unspecified; E78.49 Other hyperlipidemia; E66.01 Morbid (severe) obesity due to excess calories; J45.909 Unspecified asthma, uncomplicated; Z98.890 Other specified postprocedural states; Z90.49 Acquired absence of other specified parts of digestive tract; Z68.42 Body mass index [BMI] 45.0-49.9, adult; Z79.899 Other long term (current) drug therapy; Z79.01 Long term (current) use of anticoagulants
CPT/HCPCS: 80048; 85025; 85610; 85730; 36415; 93005; 37238; 36012; 37252; 37253 ×5; 82948 ×2; 75822; C1876; C1894 ×2; C1753; C1769; J3010; J3490 ×2; J1644 ×2; J2250; Q9967; A4215; A4335; A4222; A4221; A4663; A4216; A4606; A4223 ×3; 99156; 99157

== ENCOUNTER 2023-02-18 11:04 | Emergency (ER) | payer MEDICARE ==
[~2023-02-18] VITALS: Ht 180.3 cm; Wt 106.6 kg
[~2023-02-18 11:04] MED LIST changes: +ASPI-1197 PO; +CELE-125 PO; -CELE-84 PO; +CLOP-31 PO; -HYDRO EYE PO; -METAMUCIL PO; -NIFE90TA45 PO; +NIFE90TA72 PO
[2023-02-18 11:08] VITALS: BP 141/97; PULSE 82; RESP 18
[2023-02-18] MEDS ORDERED: ACET-2123 PO (13:12)
[2023-02-18] MEDS ORDERED: MELO-106 PO (13:12)
[2023-02-18] MEDS ORDERED: KETOROLAC 30MG VIAL (30MG/ML) IM ONE (13:30)
[2023-02-19] MEDS ORDERED: CELE-125 PO (06:14)
[2023-02-19] MEDS ORDERED: LOVA20TA3 PO (06:14)
[2023-02-19] MEDS ORDERED: FURO40TA5 PO (06:14)
[2023-02-19] MEDS ORDERED: LEVO175T9 PO (06:14)
[2023-02-19] MEDS ORDERED: HYDR-4154 PO (06:14)
[2023-02-19] MEDS ORDERED: FOLI1 PO (06:14)
[2023-02-19] MEDS ORDERED: OLME40TA18 PO (06:14)
[2023-02-19] MEDS ORDERED: ENABLEX PO (06:14)
[2023-02-19] MEDS ORDERED: VIBE75TA PO (06:14)
[2023-02-19] MEDS ORDERED: ESOM40CA54 PO (06:14)
[2023-02-19] MEDS ORDERED: LIOT5TAB11 PO (06:14)
[2023-02-19] MEDS ORDERED: ALFU10TA9 PO (06:14)
[2023-02-19] MEDS ORDERED: BALSALAZIDE PO (06:14)
== END 2023-02-18 13:23 | disposition home or self-care (01) ==
LOC: EDH 11:04
DX: S70.02XA Contusion of left hip, initial encounter (principal); S70.12XA Contusion of left thigh, initial encounter; I10 Essential (primary) hypertension; E11.9 Type 2 diabetes mellitus without complications; E03.9 Hypothyroidism, unspecified; E78.5 Hyperlipidemia, unspecified; Z90.89 Acquired absence of other organs; Z96.653 Presence of artificial knee joint, bilateral; Z79.899 Other long term (current) drug therapy; W18.30XA Fall on same level, unspecified, initial encounter; Y93.89 Activity, other specified; Y92.89 Other specified places as the place of occurrence of the external cause; Y99.8 Other external cause status
CPT/HCPCS: 99283; 73502; 96372; J1885

== ENCOUNTER → 2023-04-01 | Outpatient (CLI) | payer MEDICARE ==
[~2023-04-01] MED LIST changes: -ASPI-1197 PO; +BALSALAZIDE PO; -CLOP-31 PO; +FOLI1 PO; -FOLIC ACID PO; -FURO40TA5 PO; +HEPA500018 SQ; +HYDR25 PO; +LEVO175T9 PO; -LEVO200 PO; -MELA5TAB14 PO; -MIRA50TA PO; -MULT-1258 PO; -MV-M1TAB20 PO; -NIFE90TA72 PO; -SAW450CA7 PO; +SEMA2.4P SQ; -SYMB8060 IH; -UBID1CAP56 PO; -[UNRECOGNIZED DRUG - CODE] PO
== END | disposition home or self-care (01) ==
LOC: WHH 10:28
PROVIDERS: ATTEND Nurse Practitioner Family
DX: E11.621 Type 2 diabetes mellitus with foot ulcer (principal); L97.521 Non-pressure chronic ulcer of other part of left foot limited to breakdown of skin; E11.42 Type 2 diabetes mellitus with diabetic polyneuropathy; E11.22 Type 2 diabetes mellitus with diabetic chronic kidney disease; I13.0 Hypertensive heart and chronic kidney disease with heart failure and stage 1 through stage 4 chronic kidney disease, or unspecified chronic kidney disease; N18.2 Chronic kidney disease, stage 2 (mild); I50.31 Acute diastolic (congestive) heart failure; I87.2 Venous insufficiency (chronic) (peripheral); J44.9 Chronic obstructive pulmonary disease, unspecified; E03.9 Hypothyroidism, unspecified; N40.0 Benign prostatic hyperplasia without lower urinary tract symptoms; E78.5 Hyperlipidemia, unspecified; G47.30 Sleep apnea, unspecified; I89.0 Lymphedema, not elsewhere classified; M48.00 Spinal stenosis, site unspecified; M47.812 Spondylosis without myelopathy or radiculopathy, cervical region; M19.90 Unspecified osteoarthritis, unspecified site; E66.9 Obesity, unspecified; Z68.32 Body mass index [BMI] 32.0-32.9, adult; Z90.49 Acquired absence of other specified parts of digestive tract; Z96.653 Presence of artificial knee joint, bilateral; Z96.649 Presence of unspecified artificial hip joint; Z79.899 Other long term (current) drug therapy
CPT/HCPCS: G0463; A4450

== ENCOUNTER → 2023-04-07 | Outpatient (CLI) | payer MEDICARE | END | disposition home or self-care (01) | LOC: WHH 11:08 | PROVIDERS: ATTEND Nurse Practitioner Family | DX: E11.621 Type 2 diabetes mellitus with foot ulcer (principal); L97.521 Non-pressure chronic ulcer of other part of left foot limited to breakdown of skin; S91.105A Unspecified open wound of left lesser toe(s) without damage to nail, initial encounter; E11.42 Type 2 diabetes mellitus with diabetic polyneuropathy; E11.22 Type 2 diabetes mellitus with diabetic chronic kidney disease; I13.0 Hypertensive heart and chronic kidney disease with heart failure and stage 1 through stage 4 chronic kidney disease, or unspecified chronic kidney disease; N18.2 Chronic kidney disease, stage 2 (mild); I50.31 Acute diastolic (congestive) heart failure; I87.2 Venous insufficiency (chronic) (peripheral); J44.9 Chronic obstructive pulmonary disease, unspecified; E03.9 Hypothyroidism, unspecified; N40.0 Benign prostatic hyperplasia without lower urinary tract symptoms; E78.5 Hyperlipidemia, unspecified; G47.30 Sleep apnea, unspecified; I89.0 Lymphedema, not elsewhere classified; E66.9 Obesity, unspecified; M48.00 Spinal stenosis, site unspecified; M47.812 Spondylosis without myelopathy or radiculopathy, cervical region; M19.90 Unspecified osteoarthritis, unspecified site; Z68.32 Body mass index [BMI] 32.0-32.9, adult; Z90.49 Acquired absence of other specified parts of digestive tract; Z96.653 Presence of artificial knee joint, bilateral; Z96.649 Presence of unspecified artificial hip joint; Z79.899 Other long term (current) drug therapy; W22.03XA Walked into furniture, initial encounter; Y93.89 Activity, other specified; Y92.89 Other specified places as the place of occurrence of the external cause; Y99.8 Other external cause status | CPT/HCPCS: G0463; A4450 ==

== ENCOUNTER → 2023-04-14 | Outpatient (CLI) | payer MEDICARE ==
[~2023-04-14] MED LIST changes: +LIDOCAINE HCL 4% LTA SOL 4 ML VIAL TP ONE
== END | disposition home or self-care (01) ==
LOC: WHH 10:13
PROVIDERS: ATTEND Nurse Practitioner Family
DX: E11.621 Type 2 diabetes mellitus with foot ulcer (principal); L97.521 Non-pressure chronic ulcer of other part of left foot limited to breakdown of skin; S91.205D Unspecified open wound of left lesser toe(s) with damage to nail, subsequent encounter; E11.42 Type 2 diabetes mellitus with diabetic polyneuropathy; E11.22 Type 2 diabetes mellitus with diabetic chronic kidney disease; I13.0 Hypertensive heart and chronic kidney disease with heart failure and stage 1 through stage 4 chronic kidney disease, or unspecified chronic kidney disease; N18.2 Chronic kidney disease, stage 2 (mild); I50.31 Acute diastolic (congestive) heart failure; I87.2 Venous insufficiency (chronic) (peripheral); J44.9 Chronic obstructive pulmonary disease, unspecified; E03.9 Hypothyroidism, unspecified; N40.0 Benign prostatic hyperplasia without lower urinary tract symptoms; E78.5 Hyperlipidemia, unspecified; G47.30 Sleep apnea, unspecified; I89.0 Lymphedema, not elsewhere classified; E66.9 Obesity, unspecified; M48.00 Spinal stenosis, site unspecified; M47.812 Spondylosis without myelopathy or radiculopathy, cervical region; M19.90 Unspecified osteoarthritis, unspecified site; Z68.32 Body mass index [BMI] 32.0-32.9, adult; Z90.49 Acquired absence of other specified parts of digestive tract; Z96.653 Presence of artificial knee joint, bilateral; Z96.649 Presence of unspecified artificial hip joint; Z79.899 Other long term (current) drug therapy; W22.03XD Walked into furniture, subsequent encounter
CPT/HCPCS: G0463

== ENCOUNTER → 2023-04-28 | Outpatient (CLI) | payer MEDICARE ==
[~2023-04-28] MED LIST changes: -LIDOCAINE HCL 4% LTA SOL 4 ML VIAL TP ONE
== END | disposition home or self-care (01) ==
LOC: WHH 10:06
PROVIDERS: ATTEND Nurse Practitioner Family
DX: E11.621 Type 2 diabetes mellitus with foot ulcer (principal); L97.521 Non-pressure chronic ulcer of other part of left foot limited to breakdown of skin; S91.205D Unspecified open wound of left lesser toe(s) with damage to nail, subsequent encounter; E11.42 Type 2 diabetes mellitus with diabetic polyneuropathy; E11.22 Type 2 diabetes mellitus with diabetic chronic kidney disease; I13.0 Hypertensive heart and chronic kidney disease with heart failure and stage 1 through stage 4 chronic kidney disease, or unspecified chronic kidney disease; N18.2 Chronic kidney disease, stage 2 (mild); I50.31 Acute diastolic (congestive) heart failure; I87.2 Venous insufficiency (chronic) (peripheral); J44.9 Chronic obstructive pulmonary disease, unspecified; E03.9 Hypothyroidism, unspecified; N40.0 Benign prostatic hyperplasia without lower urinary tract symptoms; E78.5 Hyperlipidemia, unspecified; G47.30 Sleep apnea, unspecified; I89.0 Lymphedema, not elsewhere classified; M48.00 Spinal stenosis, site unspecified; M47.812 Spondylosis without myelopathy or radiculopathy, cervical region; M19.90 Unspecified osteoarthritis, unspecified site; E66.9 Obesity, unspecified; Z68.32 Body mass index [BMI] 32.0-32.9, adult; Z90.49 Acquired absence of other specified parts of digestive tract; Z96.653 Presence of artificial knee joint, bilateral; Z96.649 Presence of unspecified artificial hip joint; Z79.899 Other long term (current) drug therapy; X58.XXXD Exposure to other specified factors, subsequent encounter
CPT/HCPCS: G0463

== ENCOUNTER → 2023-05-13 | Outpatient (CLI) | payer MEDICARE | END | disposition home or self-care (01) | LOC: WHH 09:37 | PROVIDERS: ATTEND Nurse Practitioner Family | DX: E11.621 Type 2 diabetes mellitus with foot ulcer (principal); L97.521 Non-pressure chronic ulcer of other part of left foot limited to breakdown of skin; S91.205D Unspecified open wound of left lesser toe(s) with damage to nail, subsequent encounter; E11.42 Type 2 diabetes mellitus with diabetic polyneuropathy; E11.22 Type 2 diabetes mellitus with diabetic chronic kidney disease; I13.0 Hypertensive heart and chronic kidney disease with heart failure and stage 1 through stage 4 chronic kidney disease, or unspecified chronic kidney disease; N18.2 Chronic kidney disease, stage 2 (mild); I50.31 Acute diastolic (congestive) heart failure; I87.2 Venous insufficiency (chronic) (peripheral); J44.9 Chronic obstructive pulmonary disease, unspecified; E03.9 Hypothyroidism, unspecified; N40.0 Benign prostatic hyperplasia without lower urinary tract symptoms; E78.5 Hyperlipidemia, unspecified; G47.30 Sleep apnea, unspecified; I89.0 Lymphedema, not elsewhere classified; M48.00 Spinal stenosis, site unspecified; M47.812 Spondylosis without myelopathy or radiculopathy, cervical region; M19.90 Unspecified osteoarthritis, unspecified site; E66.9 Obesity, unspecified; Z68.32 Body mass index [BMI] 32.0-32.9, adult; Z90.49 Acquired absence of other specified parts of digestive tract; Z96.653 Presence of artificial knee joint, bilateral; Z96.649 Presence of unspecified artificial hip joint; Z79.899 Other long term (current) drug therapy; X58.XXXD Exposure to other specified factors, subsequent encounter | CPT/HCPCS: G0463 ==

== ENCOUNTER → 2023-06-10 | Outpatient (CLI) | payer MEDICARE | END | disposition home or self-care (01) | LOC: SHCH 12:06 | PROVIDERS: ATTEND Internal Medicine Cardiovascular Disease | DX: I87.2 Venous insufficiency (chronic) (peripheral) (principal); I73.9 Peripheral vascular disease, unspecified; I87.1 Compression of vein | CPT/HCPCS: 93925; 93970 ==